=== PATIENT | male | born 1980 | race Caucasian/White ===

== ENCOUNTER 2020-10-04 10:07 | Outpatient (REF) | payer OTHER, SELFPAY ==
[2020-10-04 10:51] LABS: MANUAL DIFF FLAG NO
[2020-10-04 10:53] LABS: Basophils Percent Auto 0.5 % (0-2); Eosinophils Absolute Auto 0.1 X10*3/uL (0.0-0.4); Eosinophils Percent Auto 1.2 % (0-4); Hematocrit 42.8 % (42-52); Hemoglobin 14.3 g/dl (14.0-18.0); Imm Gran Abs Auto 0.01 X10*3/uL (0.00-0.03); Imm Gran Pct Auto 0.1 % (0.0-0.4); Lymphocytes Absolute Auto 2.5 X10*3/uL (1.2-4.9); Mean Corpuscular HGB Conc 33.4 g/dl (31.0-36.0); Mean Corpuscular Hemoglobin 28.2 pg (27.0-33.0); Mean Corpuscular Volume 84.4 fL (80-98); Mean Platelet Volume 9.9 fL (9.4-12.4); Monocytes Absolute Auto 0.6 X10*3/uL (0.1-1.2); Monocytes Percent Auto 8.5 % (2-11); Neutrophils Absolute Auto 4.3 X10*3/uL (2.0-8.3); Neutrophils Percent Auto 56.7 % (45-73); Platelet Count 316 X10*3/uL (160-400); Red Blood Count 5.07 X10*6/uL (4.60-5.80); Red Cell Distribution Width 14.6 % (11.0-16.0); White Blood Count 7.5 X10*3/uL (4.8-10.8)
[2020-10-04 11:15] LABS: Alanine Aminotransferase 23 U/L (0-40); Albumin Level 4.5 g/dL (3.5-5.0); Alkaline Phosphatase 85 U/L (39-117); Anion Gap 12 (12-20); Aspartate Amino Transferase 22 U/L (5-37); Bilirubin Total 1.7 mg/dL (0.0-1.0); Blood Urea Nitrogen 11 mg/dL (9-16); Calcium 8.4 mg/dL (8.4-10.2); Carbon Dioxide 26 mmol/L (22-29); Chloride 104 mmol/L (96-108); Cholesterol 176 mg/dL; Estimated Glomerular Filt Rate > 60; Glucose Fasting 107 mg/dL (60-99); HDL Cholesterol 42 mg/dL; LDL Cholesterol Calculated 93 mg/dl; Potassium 3.5 mmol/l (3.3-5.1); Sodium 138 mmol/L (135-145); Total Protein 7.1 g/dL (6.5-8.0); Triglycerides 208 mg/dL
[2020-10-04 11:37] LABS: TSH reflex Free T4 2.52 mIU/mL (0.32-4.0)
[2020-10-04 12:02] LABS: Glucose Urine UA NEG (NEG); Leukocyte Esterase Urine NEG (NEG); Nitrite Urine NEG (NEG); PH 5.5 (5.0-8.0); Specific Gravity - Urine >= 1.030 (1.005-1.025); Urine Blood NEG (NEG); Urine Ketones NEG (NEG); Urine Protein NEG (NEG-TRACE)
[2020-10-04 12:06] LABS: Appearance Urine CLEAR; Color Urine YELLOW; UACC Culture Trigger NO
== END 2020-10-04 10:08 | disposition home or self-care (01) ==
LOC: HO.LAB 10:07
PROVIDERS: PCP Internal Medicine; Visit Provider Internal Medicine
DX: Z00.00 Encounter for general adult medical examination without abnormal findings (principal); E78.00 Pure hypercholesterolemia, unspecified; E55.9 Vitamin D deficiency, unspecified
CPT/HCPCS: 36415; 80053; 80061; 81003; 82306; 84443; 85025

== ENCOUNTER → 2021-07-17 12:55 | Outpatient (BNVA) | payer SELFPAY | PROVIDERS: PCP Internal Medicine; Visit Provider Physician Assistant | DX: Z02.79 Encounter for issue of other medical certificate (principal) ==

== ENCOUNTER 2021-10-04 10:00 | Outpatient (REF) | payer OTHER, SELFPAY ==
--- NOTE | ~2021-10-04 | XR_ITS ---
EXAMINATION: XR KNEE, LEFT XR ANKLE, LEFT CLINICAL INFORMATION: Pain COMPARISON: 09/30/2019 TECHNIQUE: 4 views of the left knee, including AP upright view. 3 views of the left ankle. FINDINGS: Left knee: No fracture or subluxation. The compartmental joint spaces are maintained. There are prominent tricompartmental marginal osteophytes. No joint effusion. Possible intra-articular body along the posterior joint line which measures 1 cm, although this could represent a fabella. Left ankle: No fracture or dislocation. The ankle mortise is congruent. Mild degenerative change with spurring. No ankle joint effusion. There is moderate hypertrophic spurring of the plantar aponeurosis and Achilles insertion to the calcaneus. XR/XR knee LT 3V IMPRESSION: Moderate tricompartmental degenerative changes of the left knee. Mild degenerative changes at the left ankle. Prominent heel spurs.
--- NOTE | ~2021-10-04 | XR_ITS ---
EXAMINATION: XR KNEE, LEFT XR ANKLE, LEFT CLINICAL INFORMATION: Pain COMPARISON: 09/30/2019 TECHNIQUE: 4 views of the left knee, including AP upright view. 3 views of the left ankle. FINDINGS: Left knee: No fracture or subluxation. The compartmental joint spaces are maintained. There are prominent tricompartmental marginal osteophytes. No joint effusion. Possible intra-articular body along the posterior joint line which measures 1 cm, although this could represent a fabella. Left ankle: No fracture or dislocation. The ankle mortise is congruent. Mild degenerative change with spurring. No ankle joint effusion. There is moderate hypertrophic spurring of the plantar aponeurosis and Achilles insertion to the calcaneus. XR/XR ankle LT min 3V IMPRESSION: Moderate tricompartmental degenerative changes of the left knee. Mild degenerative changes at the left ankle. Prominent heel spurs.
[2021-10-04 10:11] LABS: MANUAL DIFF FLAG NO
[2021-10-04 10:32] LABS: Basophils Absolute Auto 0.1 X10*3/uL (0.0-0.2); Basophils Percent Auto 0.6 % (0-2); Eosinophils Absolute Auto 0.1 X10*3/uL (0.0-0.4); Eosinophils Percent Auto 1.5 % (0-4); Hematocrit 43.2 % (42.0-52.0); Hemoglobin 14.6 g/dl (14.0-18.0); Imm Gran Abs Auto 0.03 X10*3/uL (0.00-0.03); Imm Gran Pct Auto 0.4 % (0.0-0.4); Lymphocytes Absolute Auto 3.1 X10*3/uL (1.2-4.9); Lymphocytes Percent Auto 37.3 % (20-40); Mean Corpuscular HGB Conc 33.8 g/dl (31.0-36.0); Mean Corpuscular Hemoglobin 28.4 pg (27.0-33.0); Mean Platelet Volume 10.4 fL (9.4-12.4); Monocytes Absolute Auto 0.7 X10*3/uL (0.1-1.2); Monocytes Percent Auto 8.7 % (2-11); Neutrophils Absolute Auto 4.24 x10*3/uL (2.0-8.3); Neutrophils Percent Auto 51.5 % (45-73); Platelet Count 301 X10*3/uL (160-400); Red Blood Count 5.14 X10*6/uL (4.60-5.80); Red Cell Distribution Width 14.8 % (11.0-16.0); White Blood Count 8.2 X10*3/uL (4.8-10.8)
[2021-10-04 11:11] LABS: Erythrocyte Sedimentation Rate 4 MM/HR (0-15)
[2021-10-04 11:16] LABS: TSH reflex Free T4 2.13 uIU/mL (0.32-4.0); Vitamin D 25-OH Total 37.5 ng/mL (>30)
[2021-10-04 11:18] LABS: Alanine Aminotransferase 40 U/L (0-40); Albumin Level 4.6 g/dL (3.5-5.0); Alkaline Phosphatase 104 U/L (39-117); Anion Gap 12 (12-20); Aspartate Amino Transferase 32 U/L (5-37); Bilirubin Total 2.2 mg/dL (0.0-1.0); Blood Urea Nitrogen 11 mg/dL (9-16); Calcium 9.1 mg/dL (8.4-10.2); Carbon Dioxide 27 mmol/L (22-29); Chloride 104 mmol/L (96-108); Cholesterol 243 mg/dL; Estimated Glomerular Filt Rate > 60; Glucose Fasting 104 mg/dL (60-99); HDL Cholesterol 39 mg/dL; LDL Cholesterol Calculated 137 mg/dl; Potassium 3.7 mmol/L (3.3-5.1); Sodium 139 mmol/L (135-145); Total Protein 7.3 g/dL (6.5-8.0); Triglycerides 336 mg/dL
[2021-10-04 11:31] LABS: Uric Acid 6.8 mg/dL (3.4-7.0)
[2021-10-04 11:33] LABS: Appearance Urine CLEAR; Color Urine YELLOW; Glucose Urine UA NEG (NEG); Leukocyte Esterase Urine NEG (NEG); Nitrite Urine NEG (NEG); Urine Blood NEG (NEG); Urine Ketones NEG (NEG); Urine Protein NEG (NEG-TRACE)
== END 2021-10-04 10:01 | disposition home or self-care (01) ==
LOC: HO.XRAY 10:00
PROVIDERS: PCP Internal Medicine; Visit Provider Internal Medicine
DX: M25.572 Pain in left ankle and joints of left foot (principal); M25.562 Pain in left knee; M25.462 Effusion, left knee; I10 Essential (primary) hypertension; E78.00 Pure hypercholesterolemia, unspecified; M79.7 Fibromyalgia; M10.9 Gout, unspecified; E55.9 Vitamin D deficiency, unspecified
CPT/HCPCS: 36415; 73562; 73610; 80053; 80061; 81003; 82306; 84443; 84550; 85025; 85652

== ENCOUNTER → 2021-10-24 09:48 | Outpatient (BNVA) | payer OTHER, SELFPAY | PROVIDERS: PCP Internal Medicine; Visit Provider Physician Assistant ==

== ENCOUNTER 2022-01-25 09:00 | Outpatient (RCR) | payer OTHER, SELFPAY ==
--- NOTE | 2021-12-04 09:20 | MHC.PT.EP ---
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 UPON EXAM HE DEMONSTRATES DECREASED ROM AND STRENGTH OF KNEE JOINT WELL WEAKNESS AROUND HIS HIP MUSCULATURE. HE REPORTS INCREASED PAIN AND EDEMA. FUNCTIONAL LIMITATIONS INCLUDE DECREASED ABILITY TO PERFORM STAIRS, WALKING AND SQUATTING AND STATIC STANIDNG. HE REPORTS DECREASED ABILITY TO PERFORM WORK TASKS AND RECREATIONAL ACTIVITIES AND HIS SLEEP IS DISRUPTED. A PT IS A GOOD CANDIDATE FOR SKILLED PT DUE TO AGE, POTENTIAL REMEDIATION OF IMPAIRMENTS, TYPICAL DISEASE/CONDITION PROGRESSION AND PROGNOSIS, COMORBIDITIES, AND MOTIVATION. PT WOULD BENEFIT FROM TAILORED PROGRAM OF THERAPEUTIC ACTIVITIES, FUNCTIONAL TRAINING, GAIT TRAINING, POSTURAL EDUCATION, NEUROMUSCULAR RE-EDUCATION, AND MODALITIES NEEDED. Frequency and Duration: The patient will be seen 2 X WEEK FOR 4 WEEKS Short Term Goals: INITIATE HEP AND PROMOTE SELF MANAGEMENT OF SYMPTOMS Halfway Goals: IN 4 WEEKS: TO DEMONSTRATE FULL KNEE ROM, EQUAL MOMO TO DEMONSTRATE FULL LE STRENGTH, EQUAL MOMO TO ASCEND AND DESCEND STAIRS WITHOUT PAIN GREATER THAN 2/10 TO AMBULATE AD VIVIANA ON LEVEL AND UNEVEN SURFACES FOR FITNESS WITHOUT PAIN GREATER THAN 2/10 TO PERFORM FULL FUNCTIONAL SQUAT WITHOUT SUBSTITUTION Treatment Plan: Modalities to reduce pain, spasms and effusion. Manual therapy to restore motion and function. Therapeutic exercise to improve strength and flexibility. Neuromuscular re-education for posture and balance. Therapeutic activities to return to functional activities of daily living. Electronically signed by: BREE DIAZ PT, DPT Please sign and return to therapist. Thank you for your referral.
--- NOTE | 2022-02-12 16:27 | MHC.PT.DC ---
[facility] [place] Office [place] Office [place] [address] Sheri Sheth 140 [facility] [phone] F: [phone] F: [phone] F: [phone] F: [phone] Physical Therapy Discharge Report Diagnosis: LEFT KNEE OA Date of Surgery: Date of Evaluation: 12/04/21 Date of Discharge: 01/28/22 Treatments to Date: 8 Cancellations to Date: 0 No Shows to Date: 0 Discharge Status: Achieved Goals Improved Function Independent with HEP Discharge Summary: Ramon progressed well in therapy with all goals met. ROM and strength are WNLs and pain is reported as a zero. He is independent with HEP and we will DC at this time. Electronically signed by: Prabha Dietrich PT, DPT Please sign and return to therapist. Thank you for your referral.
== END 2022-02-12 16:28 | disposition home or self-care (01) ==
LOC: HO.PT 09:00
PROVIDERS: PCP Internal Medicine; Visit Provider Physician Assistant
DX: M17.12 Unilateral primary osteoarthritis, left knee (principal)
CPT/HCPCS: 97110; 97161; 97530; 97535

== ENCOUNTER 2022-11-06 11:24 | Outpatient (REF) | payer OTHER, SELFPAY ==
[2022-11-06 15:01] LABS: Influenza A PCR POSITIVE (Negative); Influenza B PCR NEGATIVE (Negative); Resp Syncy Virus RNA Qual PCR NEGATIVE (Negative); SARS COV2 PCR INHOUSE NEGATIVE (Negative)
== END 2022-11-06 11:25 | disposition home or self-care (01) ==
LOC: HO.LAB 11:24
PROVIDERS: Visit Provider Nurse Practitioner Family
DX: Z20.822 Contact with and (suspected) exposure to COVID-19 (principal); B34.9 Viral infection, unspecified
CPT/HCPCS: 0241U

== ENCOUNTER 2022-12-24 08:52 | Outpatient (REF) | payer OTHER, SELFPAY ==
[2022-12-24 09:05] LABS: MANUAL DIFF FLAG NO
[2022-12-24 09:50] LABS: Basophils Absolute Auto 0.1 X10*3/uL (0.0-0.2); Basophils Percent Auto 0.6 % (0-2); Eosinophils Absolute Auto 0.1 X10*3/uL (0.0-0.4); Eosinophils Percent Auto 1.4 % (0-4); Hematocrit 41.9 % (42.0-52.0); Hemoglobin 14.2 g/dl (14.0-18.0); Imm Gran Abs Auto 0.03 X10*3/uL (0.00-0.03); Imm Gran Pct Auto 0.3 % (0.0-0.4); Lymphocytes Absolute Auto 3.7 X10*3/uL (1.2-4.9); Lymphocytes Percent Auto 41.8 % (20-40); Mean Corpuscular HGB Conc 33.9 g/dl (31.0-36.0); Mean Corpuscular Hemoglobin 28.3 pg (27.0-33.0); Mean Corpuscular Volume 83.5 fL (80.0-98.0); Mean Platelet Volume 10.5 fL (9.4-12.4); Monocytes Absolute Auto 0.7 X10*3/uL (0.1-1.2); Monocytes Percent Auto 7.8 % (2-11); Neutrophils Absolute Auto 4.3 x10*3/uL (2.0-8.3); Neutrophils Percent Auto 48.1 % (45-73); Platelet Count 351 X10*3/uL (160-400); Red Blood Count 5.02 X10*6/uL (4.60-5.80); White Blood Count 8.9 X10*3/uL (4.8-10.8)
[2022-12-24 09:53] LABS: Appearance Urine Clear; Color Urine Yellow; Glucose Urine UA Negative (Negative); Leukocyte Esterase Urine Negative (Negative); Nitrite Urine Negative (Negative); Urine Blood Negative (Negative); Urine Ketones Negative (Negative); Urine Protein Negative (Neg-Trace)
[2022-12-24 10:37] LABS: Alanine Aminotransferase 33 U/L (0-40); Albumin Level 4.2 g/dL (3.5-5.0); Alkaline Phosphatase 97 U/L (39-117); Anion Gap 13 (12-20); Aspartate Amino Transferase 23 U/L (5-37); Bilirubin Total 1.4 mg/dL (0.0-1.0); Blood Urea Nitrogen 10 mg/dL (9-16); Calcium 8.6 mg/dL (8.4-10.2); Carbon Dioxide 26 mmol/L (22-29); Chloride 105 mmol/L (96-108); Cholesterol 174 mg/dL; Estimated Glomerular Filt Rate > 60; Glucose Fasting 102 mg/dL (60-99); HDL Cholesterol 40 mg/dL; LDL Cholesterol Calculated 62 mg/dl; Potassium 3.3 mmol/L (3.3-5.1); Sodium 141 mmol/L (135-145); Total Protein 6.8 g/dL (6.5-8.0); Triglycerides 364 mg/dL
[2022-12-24 11:00] LABS: TSH reflex Free T4 3.63 uIU/mL (0.32-4.0); Vitamin D 25-OH Total 36.3 ng/mL (>30)
== END 2022-12-24 08:53 | disposition home or self-care (01) ==
LOC: HO.LAB 08:52
PROVIDERS: PCP Internal Medicine; Visit Provider Internal Medicine
DX: Z00.00 Encounter for general adult medical examination without abnormal findings (principal); E78.00 Pure hypercholesterolemia, unspecified; E55.9 Vitamin D deficiency, unspecified; R30.0 Dysuria
CPT/HCPCS: 36415; 80053; 80061; 81003; 82306; 84443; 85025

== ENCOUNTER → 2023-07-10 09:56 | Outpatient (BNVA) | payer SELFPAY | PROVIDERS: PCP Internal Medicine; Visit Provider Physician Assistant Medical | DX: Z02.79 Encounter for issue of other medical certificate (principal) ==

== ENCOUNTER 2023-07-16 08:16 | Outpatient (AMB) | payer OTHER, SELFPAY ==
[2023-07-16 08:22] VITALS: BP 148/98; PULSE 79; O2SAT 98; BMI 25.7
--- NOTE | 2023-07-16 08:22 | A.OFFPC_ITS ---
Vital Signs 07/16/23 08:22 Height 5 ft 8 in Weight 169 lb BMI 25.7 BP 148/98 H Blood Pressure Location Lt brachial Position Sitting Pulse 79 Pulse Source Pulse Oximeter Pulse Oximetry (%) 98 Oxygen Delivery Method Room Air Intake Visit Reasons: L ankle swelling Allergies No Known Allergies Allergy (Unknown, Verified 07/16/23 08:35) UNKNOWN Medication List - Last Reconciled 07/16/23 by MARY Watts atorvastatin 10 mg PO DAILY cetirizine (Zyrtec) 10 mg PO DAILY 30 days cholecalciferol (vitamin D3) (Vitamin D3) 25 mcg PO DAILY sildenafil 50 mg PO DAILY PRN Tobacco use date assessed: 12/20/22 HPI L ankle swelling HPI Details Patient is a 43-year-old male presents today for an office visit due to left ankle intermittent pain and swelling for long time now. Patient of Dr. Miller. Medical history significant for hypercholesterolemia, left ankle pain among others. 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 He reports swelling and intermittent pain in the end of his shift, reports swelling on the lateral ankle aspect, reports pain as throbbing/pressure/pinches. Patient reports that his symptoms go away by the morning when his resting. He reports ibuprofen helps with pain. He reports intermittent pain with ambulation. No shortness of breath or chest pain. Denies left ankle symptoms in the office today. 10/2021 XR/XR ankle LT min 3V IMPRESSION: Moderate tricompartmental degenerative changes of the left knee. ? Mild degenerative changes at the left ankle. Prominent heel spurs. [facility] Medical History Erectile dysfunction Perforated Meckel's diverticulum Pure hypercholesterolemia Vitamin D deficiency Surgical History Hx of left knee surgery (~1997) Status post appendectomy (~07/31/07) Family History Father Hypertension Mother Diverticulitis Brother Diverticulitis Social History Housing: House Alcohol intake: current Alcohol intake frequency: holidays/special occasions only Patient Tobacco Use Status: Never used Tobacco e-Cigarette/Vaping Use: Never Used Second Hand Smoke Exposure: Yes service: No Current occupational status: employed 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 1. Little interest or pleasure in doing things: not at all 2. Feeling down, depressed, or hopeless: not at all 3. Trouble falling or staying asleep, or sleeping too much: not at all 4. Feeling tired or having little energy: not at all 5. Poor appetite or overeating: not at all 6. Feeling bad about yourself - or that you are a failure or have let yourself or your family down: not at all 7. Trouble concentrating on things, such as reading the newspaper or watching television: not at all 8. Moving or speaking so slowly that other people could have noticed. Or the opposite - being so fidgety or restless that you have been moving around a lot more than usual: not at all 9. Thoughts that you would be better off or of hurting yourself in some way: not at all Total score: 0 Depression Screening Interpretation: Negative 19767 - PHQ-9 Billing: Yes Source: Developed by Drs. Kimani Solorzano, Molly Mckinney, Albaro Jensen and colleagues, with an educational wilbur from [employer]. Thrive Questionnaire Date Thrive assessed: 12/20/22 I am a: Patient What is your living situation today?: I have a steady place to live Within the past 12 months, did the food you bought not last and you didn't have the money to get more?: Never true Within the past 12 months, did you worry whether your food would run out before you got money to buy more?: Never true Currently or been in a relationship where the following occur: no concerns reported AUDIT C Alcohol Use Questionnaire (AUDIT-C) 1. How often do you have a drink containing alcohol?: Monthly or less 2. How many drinks containing alcohol do you have on a typical day when you are drinking?: 1 or 2 3. How often do you have six or more drinks on one occasion?: Never Total Score: 1 Score Reviewed/Action Taken: No MALGORZATA-7 AMB Questionnaire MALGORZATA-7 Date MALGORZATA - 7 assessed: 12/20/22 Feeling nervous, anxious, or on edge: 0 = Not at all Not being able to stop or control worryin = Not at all Worrying too much about different things: 0 = Not at all Trouble relaxin = Not at all Being so restless that it is hard to sit still: 0 = Not at all Becoming easily annoyed or irritable: 0 = Not at all Feeling afraid as if something awful might happen: 0 = Not at all Total MALGORZATA-7 score (0-4 normal; 5-9 mild; 10-14 moderate; 15-21 severe): 0 Source: Developed by Drs. Kimani Solorzano, Molly Mckinney, Albaro Jensen and colleagues, with an educational wilbur from [employer]. MALGORZATA-7 Assessment Billing MALGORZATA-7 Assessment Tool: MALGORZATA-7 Assessment 03749 Review of Systems Const Denies body aches, Denies chills, Denies fever(s) and Denies headache(s) Eyes Denies change in vision ENT Denies dizziness, Denies otalgia, Denies headache(s), Denies nasal discharge, Denies sinus pain and Denies sore throat Card Denies chest pain, Denies edema, Denies lightheadedness and Denies dyspnea Resp Denies cough, Denies dyspnea and Denies wheezing GI Denies abdominal pain Denies dysuria Musc Denies myalgias and Reports arthralgias Skin/Breast Denies rash Neuro Denies dizziness and Denies headache(s) Aller/Immun Denies wheezing Physical exam (Primary Care) Vital Signs: Last Vital Signs Pulse 79 07/16/23 08:22 BP 148/98 H 07/16/23 08:22 Pulse Ox 98 07/16/23 08:22 Oxygen Delivery Method Room Air 07/16/23 08:22 BMI result Body Mass Index 25.7 Tobacco/Smoking Status: Tobacco use Status Tobacco use date assessed 12/20/22 07/16/23 08:26 Patient Tobacco Use Status Never used Tobacco 07/16/23 08:26 e-Cigarette/Vaping Use Never Used 07/16/23 08:26 PHQ-9: PHQ-9 Score PHQ-9: Total score 0 07/16/23 08:26 Depression Screening Interpretation: Negative Thrive Assessment: Date of Thrive Assessment Date Thrive assessed 12/20/22 07/16/23 08:26 Currently or been in a relationship where the following occur: no concerns reported Const General: cooperative and no acute distress Orientation/consciousness: patient oriented x3 HENMT Head: Yes normocephalic and Yes atraumatic Mouth: oropharynx normal and moist mucous membranes Throat: Yes posterior oropharynx normal Eyes General: appearance normal, both eyes and all related structures Neck Neck: Yes normal visual inspection and Yes full ROM Resp Effort & Inspection: normal respiratory effort and able to speak in complete sentences Auscultation: clear to auscultation bilaterally, no crackles, no rales, no rhonchi and no wheezes Cardio Rate: regular rate Rhythm: regular rhythm Heart sounds: S1 normal heart sound present and S2 normal heart sound present Peripheral pulses: dorsalis pedis present on the left GI Auscultation: normal bowel sounds Skin General skin exam: no rashes or lesions noted Neuro General: patient oriented x3 Gait exam (Neuro): Normal gait present Extrem General: Yes full ROM and No edema Left lower extremity: ankle Details: normal to inspection and normal ROM; no tenderness, no swelling, no pitting edema, no warmth, no ecchymosis and no crepitus Assessment and Plan Assessment & Plan (1) Left ankle pain: Code(s): M25.572 - Pain in left ankle and joints of left foot Qualifiers: Chronicity: acute Qualified Code(s): M25.572 - Pain in left ankle and joints of left foot Plan: Patient presents with ongoing left ankle intermittent pain and swelling for long time. Physical exam normal today for left ankle. Suspect musculoskeletal in origin. Will refer to physical therapy. Patient can continue [id number] ibuprofen 400 mg every 8 hours as needed for pain. Follow-up if no improvement after physical therapy. Patient agreed with the plan. Orders: Orders PT Evaluation and Treatment Today M25.572 - Pain in left ankle and joints of left foot Coding Level of Care Code Est Pt Level 3 (09684) Diagnoses Left ankle pain M25.572 Chronicity: acute Additional Codes MALGORZATA-7 Assessment Billing - MALGORZATA-7 Assessment Tool: MALGORZATA-7 Assessment 44589 ([id number])
== END 2023-07-16 08:47 | disposition home or self-care (01) ==
PROVIDERS: PCP Internal Medicine; Visit Provider Nurse Practitioner Family
DX: M25.572 Pain in left ankle and joints of left foot (principal)
CPT/HCPCS: 99213

== ENCOUNTER 2023-08-30 08:00 | Outpatient (RCR) | payer OTHER, SELFPAY ==
--- NOTE | 2023-08-20 12:51 | MHC.PT.EP ---
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 PRESENTS WITH LIMITED L ANKLE ROM, ANTALGIC GT, PAIN WITH LIMITED ADLS. Pt REPORTS SWELLING NOTED AT TIMES AFTER WORK. SHOULD BENEFIT FROM PT TO ADDRESS THESE ISSUES Frequency and Duration: The patient will be seen 2X/WK X 6 WKS Short Term Goals: 1. INCREASED AWARENESS ANKLE CARE 2. IMPROVED GT PATTERN (LESS LIMP) Global Project Manager Goals: 1. I HEP WITH DC EX PLAN 2. DECREASED L ANKLE PAIN AT LEAST 50% WITH ADLS 3. INCREASED L ANKLE ROM 5 DEGREES T/O Treatment Plan: Modalities to reduce pain, spasms and effusion. Manual therapy to restore motion and function. Therapeutic exercise to improve strength and flexibility. Neuromuscular re-education for posture and balance. Therapeutic activities to return to functional activities of daily living. Electronically signed by: PIERRE FRANKS PT Please sign and return to therapist. Thank you for your referral.
--- NOTE | 2023-08-30 10:41 | MHC.PT.DC ---
[facility] [place] Office [place] Office [place] Office [address] Sheri Sheth [address] [phone] F: [phone] F: [phone] F: [phone] F: [phone] Physical Therapy Discharge Report Diagnosis: L ANKLE PAIN Date of Surgery: NA Date of Evaluation: 08/20/23 Date of Discharge: 08/30/23 Treatments to Date: 4 Cancellations to Date: No Shows to Date: Discharge Status: Independent with HEP Patient Elected to Stop Discharge Summary: HAS MET MOST PT GOALS EXCEPT CONTINUES WITH LIMITED DF/PF (HAS STRETCHED TO CONTINUE TO WORK ON THIS) Electronically signed by: PIERRE FRANKS PT Please sign and return to therapist. Thank you for your referral.
== END 2023-08-30 10:44 | disposition home or self-care (01) ==
LOC: HO.PT 08:00
PROVIDERS: PCP Internal Medicine; Visit Provider Nurse Practitioner Family
DX: M25.572 Pain in left ankle and joints of left foot (principal)
CPT/HCPCS: 97110; 97140; 97161; 97530

== ENCOUNTER 2024-03-02 13:38 | Inpatient (IN) | payer OTHER, SELFPAY ==
--- NOTE | ~2024-03-02 | MR_ITS ---
MR BRAIN WITHOUT CONTRAST CLINICAL INFORMATION: Left facial weakness and left arm numbness. COMPARISON: CTA head and neck 03/02/2024. TECHNIQUE: MRI of the brain was obtained using routine sequences without contrast. FINDINGS: There is no hydrocephalus, extra-axial surface collection, or herniation. Mild nonspecific T2 signal changes within the supratentorial white matter. The major flow voids at the skull base are preserved. There is no acute infarct on diffusion-weighted imaging. There is no intracranial hemorrhage on the gradient recalled echo acquisition. The midline structures are normal. The cerebellar tonsils are normally positioned. The cerebellum and brainstem are normal. The craniocervical junction is normal. Osseous marrow signal intensity is homogenous. There is a partially imaged 1.3 cm ovoid nodule partially inseparable from the deep lobe of the left parotid gland extending into the left parapharyngeal space that could reflect a primary parotid lesion or a lymph node. MR/MR head/brain wo con IMPRESSION: - No acute infarcts. Mild nonspecific T2 signal changes within the supratentorial white matter. - There is a partially imaged 1.3 cm ovoid nodule partially inseparable from the deep lobe of the left parotid gland extending into the left parapharyngeal space that could reflect a primary parotid lesion or a lymph node.
--- NOTE | ~2024-03-02 | XR_ITS ---
EXAMINATION: XR CHEST CLINICAL INFORMATION: Hypertension COMPARISON: Chest radiograph 03/31/2007 TECHNIQUE: 2 views of the chest were obtained. FINDINGS: No significant abnormality is noted involving the heart, lungs, mediastinum, bony thorax or soft tissues. XR/XR chest 2V IMPRESSION: Unremarkable examination.
--- NOTE | ~2024-03-02 | CT_ITS ---
EXAMINATION: CT ANGIOGRAM HEAD CT ANGIOGRAM NECK CLINICAL INFORMATION: Reason for Exam stroke, LEFT FACIAL WEAKNESS COMPARISON: None. TECHNIQUE: Initial noncontrast day care aide imaging of the head and neck was performed. Noncontrast head CT was also performed. Test bolus sequences followed by intravenous administration 70 mL of 350. Helical imaging was performed in the axial plane from the aortic arch to the skull vertex. Delayed postcontrast imaging of the head was also performed. The data was processed at the angiography technologist workstation for generation of MIP sequences. Angled MIPs and volume rendered reformatted images were also generated at an offline 3D workstation. Stenoses are assessed in accordance with NASCET criteria unless otherwise indicated. DLP: 2026.7 mGy-cm This CT examination was performed using dose optimization techniques as appropriate, variously including the following: *Automated exposure control. *Adjustment of mA and/or kV according to patient size (this includes techniques or standardized protocols for targeted exams where dose is matched to indication/reason for exam; i.e. extremities or head). *Use of iterative reconstruction technique. FINDINGS: CT Head: There is no evidence of acute intracranial hemorrhage or edematous territorial infarction. Mild mineralization in the left cerebellar hemisphere. There is no abnormal attenuation within the brain parenchyma. Wright-white matter differentiation is preserved. The ventricles are normal in size and configuration. No evidence for obstructive hydrocephalus. No abnormal mass effect or midline shift. No extra-axial fluid collections. No pathologic intra-axial enhancement or regional oligemia. No acute soft tissue or osseous abnormalities. The mastoid air cells and paranasal sinuses are clear. CT Neck: The thyroid gland and remaining cervical soft tissues are within normal limits. Multilevel cervical spondylosis. CT Upper Chest: The visualized lung apices and upper mediastinum are within normal limits. CTA of the head and neck is somewhat technically limited secondary to motion artifact. Extensive venous contamination also somewhat limits assessment of the distal intracranial arterial vasculature. Neck CTA: Aortic Arch: Normal contour and caliber. Two vessel branching pattern of the arch with left common carotid artery arising from the brachiocephalic trunk. Great Vessel Origins: No significant stenosis of the branch origins. Right Common Carotid Artery: No focal stenosis or occlusion. Cervical Right Internal Carotid Artery: Normal opacification without focal stenosis or occlusion. Left Common Carotid Artery: No focal stenosis or occlusion. Cervical Left Internal Carotid Artery: Normal opacification without focal stenosis or occlusion. Cervical Right Vertebral Artery: No focal stenosis or occlusion. Cervical Left Vertebral Artery: No focal stenosis or occlusion. Brain CTA: Intracranial Internal Carotid Arteries: No focal stenosis or occlusion. Right Anterior Cerebral Artery: Normal A1 segment. Normal opacification of the distal [place]IS[place] segments. Left Anterior Cerebral Artery: Normal A1 segment. Normal opacification of the distal GIS[place]LL segments. Anterior Communicating Artery: Normal. Right Middle Cerebral Artery: Normal M1 segment of the MCA without focal stenosis or occlusion. Normal arborization of the distal segments. Left Middle Cerebral Artery: Normal M1 segment of the MCA without focal stenosis or occlusion. Normal arborization of the distal segments. Right Vertebral Artery: Normal V4 segment. Left Vertebral Artery: Normal V4 segment. Basilar Artery: Normal without focal stenosis or occlusion. Normal appearance of the proximal superior cerebellar arteries. Right Posterior Cerebral Artery: Normal P1 segment. Normal opacification of the distal ELECTRIC FORK OPERATOR segments. Left Posterior Cerebral Artery: Normal P1 segment. Normal opacification of the distal ELECTRIC FORK OPERATOR segments. Normal opacification of the superior sagittal, straight, transverse, and sigmoid sinuses. CT/CT angio head neck IMPRESSION: 1. No acute intracranial abnormality including hemorrhage, mass effect, hydrocephalus, or acute territorial edematous infarction. 2. Within the technical limitations of motion artifact and intracranial venous contamination, no evidence of arterial high grade stenosis or large vessel occlusion in the head or neck.
[2024-03-02 13:48] VITALS: BP 212/133; PULSE 101; RESP 20; TEMP 37.4; O2SAT 100; BMI 25.8
--- NOTE | 2024-03-02 13:48 | ED_ITS ---
HPI - General Adult General Chief complaint: General Medical Stated complaint: High blood pressure Time Seen by Provider: 03/02/24 20:34 Related Data Previous Rx's Medication Instructions Recorded cetirizine 10 mg tablet (Zyrtec) 10 mg PO DAILY 30 days #30 tabs 11/06/22 sildenafil 50 mg tablet 50 mg PO DAILY PRN sexual activity 02/20/23 #6 tabs atorvastatin 10 mg tablet 10 mg PO DAILY #90 tabs 04/11/23 cholecalciferol (vitamin D3) 25 25 mcg PO DAILY #90 caps 01/17/24 mcg (1,000 unit) capsule (Vitamin D3) Allergies Allergy/AdvReac Type Severity Reaction Status Date / Time No Known Allergies Allergy Unknown UNKNOWN Verified 07/16/23 08:35 [facility] Past Medical History Medical History Erectile dysfunction Perforated Meckel's diverticulum Vitamin D deficiency Pure hypercholesterolemia Surgical History Hx of left knee surgery (~1997) Status post appendectomy (~07/31/07) Family History Family History Father Hypertension Mother Diverticulitis Brother Diverticulitis Social History Social History Housing: House Alcohol intake: current Alcohol intake frequency: holidays/special occasions only Alcohol type: beer and hard liquor Patient Tobacco Use Status: Never used Tobacco e-Cigarette/Vaping Use: Never Used Second Hand Smoke Exposure: Yes service: No Current occupational status: employed 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[employer] Cognitive needs: No Hearing needs: No Vision needs: No Physical Exam ED Vital Signs: Vital Signs - 24 hr 03/02/24 13:48 03/02/24 19:31 03/02/24 21:06 Temperature 99.3 F 98.2 F 97.6 F Pulse Rate 101 H 92 87 Respiratory Rate 20 18 16 Blood Pressure 212/133 H 214/121 H 207/109 H Pulse Oximetry 100 97 99 Oxygen Delivery Method Room Air Room Air Room Air 03/02/24 22:12 03/02/24 22:59 Temperature 97.6 F Pulse Rate 74 75 Respiratory Rate 20 18 Blood Pressure 176/107 H 175/104 H Pulse Oximetry 98 97 Oxygen Delivery Method Room Air Room Air BMI result Body Mass Index 25.8 Course Course Course Narrative: This is a rapid medical exam: Additional HPI, ROS, PE not included below will be deferred to primary provider. Patient is a 43-year-old male presenting to the emergency department stating that his blood pressure was high when he checked it at [facility] yesterday, 180 systolic. BP 230/130 L arm, 212/133 R arm in triage. Denies recent headaches, chest pain, dizziness. Does report headaches at times. States he drinks a lot of caffeine, and is under increased stress. This morning had decreased taste. Plan: EKG, labs, CXR Medications Administered Discontinued Medications Generic Name Dose Route Start Last Admin Trade Name Freq PRN Reason Stop Dose Admin Iohexol 100 ml 03/02/24 21:49 03/02/24 21:50 Iohexol 350 Mg/Ml 100 Ml Infus..Btl IV 03/02/24 21:50 70 ml ONCE ONE Administration Labetalol HCl 10 mg 03/02/24 21:09 03/02/24 21:32 Labetalol Hcl 100 Mg/20 Ml Vial IVPUSH 03/02/24 21:10 10 mg ONCE ONE Administration Medical Decision Making Medical Decision Making MDM Narrative: Patient is 43 years old presents today with having some facial weakness along with arm numbness subjective weakness. Question Nuno's versus CVA. Patient's sugar is normal. No evidence for hypoglycemia. CT scan of the head was grossly negative for any acute evidence of bleeding. CTA was negative for any large vessel occlusion. Patient's symptoms greater than 24 hours not a good candidate for tPA. Patient blood pressure extremely elevated at 210/130 initially. A dose of labetalol was given. Current blood pressure is down to 170/100. Will keep at current level. Case discussed with the hospitalist team. Will admit for further evaluation of possible CVA. Currently in stable condition. Differential Diagnosis Differential Diagnoses: The differential diagnosis associated with the presentation includes CVA Nuno's palsy hypoglycemia Admission/Observation Consideration of admission/observation: Escalation of care including admission/observation considered Consult Healthcare Provider Management of the patient was discussed with: Hospitalist (Discussed with hospitalist for admission) Lab Data MDM Lab Attestation statement: I reviewed the patient's lab results. 03/02/24 14:01 03/02/24 14:01 Labs: Lab Results 03/02/24 03/02/24 Range/Units 14:01 23:03 WBC 8.1 (4.8-10.8) X10*3/uL RBC 5.29 (4.60-5.80) X10*6/uL Hgb 14.9 (14.0-18.0) g/dl Hct 43.3 (42.0-52.0) % MCV 81.9 (80.0-98.0) fL MCH 28.2 (27.0-33.0) pg MCHC 34.4 (31.0-36.0) g/dl RDW 14.9 (11.0-16.0) % Plt Count 329 (160-400) X10*3/uL MPV 10.1 (9.4-12.4) fL Immature Gran % (Auto) 0.5 H (0.0-0.4) % Neut % (Auto) 53.9 (45-73) % Lymph % (Auto) 36.5 (20-40) % [place] % (Auto) 7.3 (2-11) % Eos % (Auto) 1.1 (0-4) % Baso % (Auto) 0.7 (0-2) % Lymph # (Auto) 3.0 (1.2-4.9) X10*3/uL [place] # (Auto) 0.6 (0.1-1.2) X10*3/uL Eos # (Auto) 0.1 (0.0-0.4) X10*3/uL Baso # (Auto) 0.1 (0.0-0.2) X10*3/uL Abs Immat Gran (auto) 0.04 H (0.00-0.03) X10*3/uL Absolute Neuts (auto) 4.4 (2.0-8.3) x10*3/uL Absolute Nucleated RBC 0.000 (0.0-0.012) X10*3/uL Nucleated RBC % (auto) 0.0 (0.0-0.2) /100WBC Sodium 142 (135-145) mmol/L Potassium 3.1 L (3.3-5.1) mmol/L Chloride 107 (96-108) mmol/L Carbon Dioxide 25 (22-29) mmol/L Anion Gap 13 (12-20) BUN 6 L (9-16) mg/dL Creatinine 0.84 (0.5-1.4) mg/dL Estim Creat Clear Calc 106.0 Estimated GFR > 60 Random Glucose 122 H (60-115) mg/dL Calcium 8.9 (8.4-10.2) mg/dL Total Bilirubin 1.1 H (0.0-1.0) mg/dL AST 30 (5-37) U/L ALT 41 H (0-40) U/L Alkaline Phosphatase 93 (39-117) U/L Troponin I High Sens < 2.7 (<3.5-35.0) ng/L Total Protein 7.4 (6.5-8.0) g/dL Albumin 4.3 (3.5-5.0) g/dL Urine Color Yellow Urine Appearance Clear Urine pH 7.0 (5.0-9.0) Ur Specific [place] 1.020 (1.005-1.025) Urine Protein Negative (Neg-Trace) mg/dL Urine Glucose (UA) Negative (Negative) mg/dL Urine Ketones Negative (Negative) mg/dL Urine Blood Negative (Negative) Urine Nitrite Negative (Negative) Ur Leukocyte Esterase Negative (Negative) Influenza Type A (PCR) NEGATIVE (Negative) Influenza Type B (PCR) NEGATIVE (Negative) RSV RNA Qual (PCR) NEGATIVE (Negative) SARS-CoV-2 RNA (RT-PCR) NEGATIVE (Negative) Independent Interpretation I performed an independent interpretation of an: EKG (Sinus heart rate is 100 FL QRS QTC within normal limits is no acute ST segment elevation noted.) and CT Scan (CT scan of the head was grossly negative for any acute evidence of bleeding) Radiology Impression Discussion of test interpretation with radiology: I have reviewed the radiologist's reading. Chronic Conditions Patient?s care impacted by: Hypertension Social Determinants Patient?s care significantly limited by Social Determinants of Health including: Problems related to primary support group Critical Care Time Critical Care Time Critical Care Time: Yes Total Critical Care Time: 40 Attestation: I have personally provided 40 minutes of critical care time exclusive of time spent on separately billable procedures. ?Time includes review of lab data, radiology results, discussion with consultants, and monitoring for potential decompensation. ?Interventions were performed as documented above Discharge Plan Discharge Clinical Impression: Acute CVA (cerebrovascular accident) Patient Disposition: Admitted As Inpatient Prescriptions: No Action sildenafil 50 mg tablet 50 mg PO DAILY PRN (Reason: sexual activity) Qty: 6 1RF atorvastatin 10 mg tablet 10 mg PO DAILY Qty: 90 3RF cholecalciferol (vitamin D3) [Vitamin D3] 25 mcg (1,000 unit) capsule 25 mcg PO DAILY Qty: 90 0RF cetirizine [Zyrtec] 10 mg tablet 10 mg PO DAILY 30 Days Qty: 30 0RF
--- NOTE | 2024-03-02 13:50 | ECG_ITS ---
Test Reason : CHST PRESSURE Blood Pressure : / mmHG Vent. Rate : 095 BPM Atrial Rate : 095 BPM P-R Int : 156 ms QRS Dur : 096 ms QT Int : 376 ms P-R-T Axes : 037 076 004 degrees QTc Int : 472 ms Normal sinus rhythm Normal ECG No previous ECGs available Referred By: Radha You Electronically Signed By:BRANDEE SLATER MD
[2024-03-02 14:23] LABS: MANUAL DIFF FLAG NO
[2024-03-02 14:24] LABS: Basophils Absolute Auto 0.1 X10*3/uL (0.0-0.2); Basophils Percent Auto 0.7 % (0-2); Eosinophils Absolute Auto 0.1 X10*3/uL (0.0-0.4); Eosinophils Percent Auto 1.1 % (0-4); Hematocrit 43.3 % (42.0-52.0); Hemoglobin 14.9 g/dl (14.0-18.0); Imm Gran Abs Auto 0.04 X10*3/uL (0.00-0.03); Imm Gran Pct Auto 0.5 % (0.0-0.4); Lymphocytes Percent Auto 36.5 % (20-40); Mean Corpuscular HGB Conc 34.4 g/dl (31.0-36.0); Mean Corpuscular Hemoglobin 28.2 pg (27.0-33.0); Mean Corpuscular Volume 81.9 fL (80.0-98.0); Mean Platelet Volume 10.1 fL (9.4-12.4); Monocytes Absolute Auto 0.6 X10*3/uL (0.1-1.2); Monocytes Percent Auto 7.3 % (2-11); Neutrophils Absolute Auto 4.4 x10*3/uL (2.0-8.3); Neutrophils Percent Auto 53.9 % (45-73); Platelet Count 329 X10*3/uL (160-400); Red Blood Count 5.29 X10*6/uL (4.60-5.80); Red Cell Distribution Width 14.9 % (11.0-16.0); White Blood Count 8.1 X10*3/uL (4.8-10.8)
[2024-03-02 14:47] LABS: Alanine Aminotransferase 41 U/L (0-40); Albumin Level 4.3 g/dL (3.5-5.0); Alkaline Phosphatase 93 U/L (39-117); Anion Gap 13 (12-20); Aspartate Amino Transferase 30 U/L (5-37); Bilirubin Total 1.1 mg/dL (0.0-1.0); Blood Urea Nitrogen 6 mg/dL (9-16); Calcium 8.9 mg/dL (8.4-10.2); Carbon Dioxide 25 mmol/L (22-29); Chloride 107 mmol/L (96-108); Estimated Glomerular Filt Rate > 60; Glucose Random 122 mg/dL (60-115); Potassium 3.1 mmol/L (3.3-5.1); Sodium 142 mmol/L (135-145); Total Protein 7.4 g/dL (6.5-8.0)
[2024-03-02 14:56] LABS: Troponin-I High Sensitivity < 2.7 ng/L (<3.5-35.0)
[2024-03-02 15:22] LABS: Influenza A PCR NEGATIVE (Negative); Influenza B PCR NEGATIVE (Negative); Resp Syncy Virus RNA Qual PCR NEGATIVE (Negative); SARS COV2 PCR INHOUSE NEGATIVE (Negative)
[2024-03-02 19:31] VITALS: BP 214/121; PULSE 92; RESP 18; TEMP 36.8; O2SAT 97
[2024-03-02 21:06] VITALS: BP 207/109; PULSE 87; RESP 16; TEMP 36.4; O2SAT 99
--- NOTE | 2024-03-02 21:20 | ED_ITS ---
HPI - General Adult General Chief complaint: General Medical Stated complaint: High blood pressure Time Seen by Provider: 03/02/24 20:34 History of Present Illness HPI narrative: Patient is a 43-year-old male presents today with having weakness on the left side. Mostly over the face and over the hand. Symptoms been ongoing for 2 days. Patient did not ask for help. No history diabetes. Positive history of hypertension but not under control. Currently on no medications. No fever no chills no cough no congestion. Related Data Previous Rx's Medication Instructions Recorded cetirizine 10 mg tablet (Zyrtec) 10 mg PO DAILY 30 days #30 tabs 11/06/22 sildenafil 50 mg tablet 50 mg PO DAILY PRN sexual activity 02/20/23 #6 tabs atorvastatin 10 mg tablet 10 mg PO DAILY #90 tabs 04/11/23 cholecalciferol (vitamin D3) 25 25 mcg PO DAILY #90 caps 01/17/24 mcg (1,000 unit) capsule (Vitamin D3) Allergies Allergy/AdvReac Type Severity Reaction Status Date / Time No Known Allergies Allergy Unknown UNKNOWN Verified 07/16/23 08:35 Review of Systems 2 Review of Systems: Positive facial weakness on the left Yes all other systems are reviewed and are negative PMFSH Past Medical History Medical History Erectile dysfunction Perforated Meckel's diverticulum Vitamin D deficiency Pure hypercholesterolemia Surgical History Hx of left knee surgery (~1997) Status post appendectomy (~07/31/07) Family History Family History Father Hypertension Mother Diverticulitis Brother Diverticulitis Social History Social History Housing: House Alcohol intake: current Alcohol intake frequency: holidays/special occasions only Alcohol type: beer and hard liquor Patient Tobacco Use Status: Never used Tobacco Smoked in Last 30 Days: No e-Cigarette/Vaping Use: Never Used Second Hand Smoke Exposure: Yes Use of substances other than those prescribed or required for medical reasons: No Advance Directives: No Advance Directives Information Provided: No Nutrition Risks: No Nutritional Risk service: No Current occupational status: employed 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[employer] Cognitive needs: No Hearing needs: No Vision needs: No Physical Exam ED Vital Signs: Vital Signs - 24 hr 03/02/24 13:48 03/02/24 19:31 03/02/24 21:06 Temperature 99.3 F 98.2 F 97.6 F Pulse Rate 101 H 92 87 Respiratory Rate 20 18 16 Blood Pressure 212/133 H 214/121 H 207/109 H Pulse Oximetry 100 97 99 Oxygen Delivery Method Room Air Room Air Room Air 03/02/24 22:12 03/02/24 22:59 Temperature 97.6 F Pulse Rate 74 75 Respiratory Rate 20 18 Blood Pressure 176/107 H 175/104 H Pulse Oximetry 98 97 Oxygen Delivery Method Room Air Room Air BMI result Body Mass Index 25.8 Appearance: Alert. Oriented X3. No acute distress. Eyes: Pupils equal, round and reactive to light. ENT: Pharynx normal. Neck: Normal inspection. Neck supple. No lymph nodes noted. No crepitus CVS: Normal heart rate and rhythm. Pulses normal. Normal S1 and S2 Respiratory: No respiratory distress. Breath sounds normal. No Wheezing. No rales Abdomen: Soft and nontender. No rigidity. No distention. good BS x4 Skin: Skin warm and dry. Normal skin color. Normal skin turgor. Extremities: No lower extremity edema. Neurovascular intact to all extremities. No Lacerations. No Rash Neuro: Oriented X 3. Slight facial droop noted over the left face both upper and lower. Subjective weakness over the left upper extremity. No sensory deficit. Moving all extermities. No slurred speech NIH Stroke Scale Time: 21:24 Level of Consciousness: Alert Level of Consciousness Questions: Answers both questions correctly Level of Consciousness Commands: Performs both tasks correctly Best Gaze: Normal Visual: No visual loss Facial Palsy: Minor paralyis Motor Arm (Right): No drift Motor Arm (Left): No drift Motor Leg (Right): No drift Motor Leg (Left): No drift Limb Ataxia: Absent Sensory: Normal Best Language: No aphasia Dysarthia: Normal Extinction and Inattention: No abnormality Score: 1 Medications Administered Generic Name Dose Route Start Last Admin Trade Name Freq PRN Reason Stop Dose Admin Acetaminophen 650 mg 03/03/24 00:07 03/03/24 00:23 Acetaminophen 325 Mg Tablet PO 650 mg Q6H PRN Administration Pain, Mild (Pain Scale 1-3) Amlodipine Besylate 5 mg 03/03/24 00:15 03/03/24 00:23 Amlodipine Besylate 5 Mg Tablet PO 5 mg BEDTIME SHYAM Administration Protocol Prednisone 60 mg 03/03/24 00:15 03/03/24 00:33 Prednisone 20 Mg Tablet PO 03/06/24 21:01 60 mg BEDTIME SHYAM Administration Discontinued Medications Generic Name Dose Route Start Last Admin Trade Name Karina PRN Reason Stop Dose Admin Aspirin 162 mg 03/03/24 00:56 03/03/24 01:42 Aspirin Enteric Coated 81 Mg Tablet. PO 03/03/24 00:57 162 mg ONCE ONE Administration Iohexol 100 ml 03/02/24 21:49 03/02/24 21:50 Iohexol 350 Mg/Ml 100 Ml Infus..Btl IV 03/02/24 21:50 70 ml ONCE ONE Administration Labetalol HCl 10 mg 03/02/24 21:09 03/02/24 21:32 Labetalol Hcl 100 Mg/20 Ml Vial IVPUSH 03/02/24 21:10 10 mg ONCE ONE Administration Potassium Chloride 20 meq 03/03/24 00:34 03/03/24 01:42 Potassium Chloride Er 20 Meq Tab.Er.Prt PO 03/03/24 00:35 20 meq ONCE ONE Administration Medical Decision Making Lab Data 03/02/24 14:01 03/02/24 14:01 Labs: Lab Results 03/02/24 03/02/24 Range/Units 14:01 23:03 WBC 8.1 (4.8-10.8) X10*3/uL RBC 5.29 (4.60-5.80) X10*6/uL Hgb 14.9 (14.0-18.0) g/dl Hct 43.3 (42.0-52.0) % MCV 81.9 (80.0-98.0) fL MCH 28.2 (27.0-33.0) pg MCHC 34.4 (31.0-36.0) g/dl RDW 14.9 (11.0-16.0) % Plt Count 329 (160-400) X10*3/uL MPV 10.1 (9.4-12.4) fL Immature Gran % (Auto) 0.5 H (0.0-0.4) % Neut % (Auto) 53.9 (45-73) % Lymph % (Auto) 36.5 (20-40) % [place] % (Auto) 7.3 (2-11) % Eos % (Auto) 1.1 (0-4) % Baso % (Auto) 0.7 (0-2) % Lymph # (Auto) 3.0 (1.2-4.9) X10*3/uL [place] # (Auto) 0.6 (0.1-1.2) X10*3/uL Eos # (Auto) 0.1 (0.0-0.4) X10*3/uL Baso # (Auto) 0.1 (0.0-0.2) X10*3/uL Abs Immat Gran (auto) 0.04 H (0.00-0.03) X10*3/uL Absolute Neuts (auto) 4.4 (2.0-8.3) x10*3/uL Absolute Nucleated RBC 0.000 (0.0-0.012) X10*3/uL Nucleated RBC % (auto) 0.0 (0.0-0.2) /100WBC Sodium 142 (135-145) mmol/L Potassium 3.1 L (3.3-5.1) mmol/L Chloride 107 (96-108) mmol/L Carbon Dioxide 25 (22-29) mmol/L Anion Gap 13 (12-20) BUN 6 L (9-16) mg/dL Creatinine 0.84 (0.5-1.4) mg/dL Estim Creat Clear Calc 106.0 Estimated GFR > 60 Random Glucose 122 H (60-115) mg/dL Calcium 8.9 (8.4-10.2) mg/dL Total Bilirubin 1.1 H (0.0-1.0) mg/dL AST 30 (5-37) U/L ALT 41 H (0-40) U/L Alkaline Phosphatase 93 (39-117) U/L Troponin I High Sens < 2.7 (<3.5-35.0) ng/L Total Protein 7.4 (6.5-8.0) g/dL Albumin 4.3 (3.5-5.0) g/dL Urine Color Yellow Urine Appearance Clear Urine pH 7.0 (5.0-9.0) Ur Specific [place] 1.020 (1.005-1.025) Urine Protein Negative (Neg-Trace) mg/dL Urine Glucose (UA) Negative (Negative) mg/dL Urine Ketones Negative (Negative) mg/dL Urine Blood Negative (Negative) Urine Nitrite Negative (Negative) Ur Leukocyte Esterase Negative (Negative) Influenza Type A (PCR) NEGATIVE (Negative) Influenza Type B (PCR) NEGATIVE (Negative) RSV RNA Qual (PCR) NEGATIVE (Negative) SARS-CoV-2 RNA (RT-PCR) NEGATIVE (Negative) Discharge Plan Discharge Clinical Impression: Acute CVA (cerebrovascular accident) Patient Disposition: Admitted As Inpatient
[2024-03-02] MEDS: Labetalol HCL 100 MG/20 ML VIAL 10 MG IVPUSH (21:32)
[2024-03-02] MEDS: iohexoL 350 MG/ML 100 ML INFUS..BTL IV (21:50)
[2024-03-02 22:12] VITALS: BP 176/107; PULSE 74; RESP 20; O2SAT 98
[2024-03-02 22:59] VITALS: BP 175/104; PULSE 75; RESP 18; TEMP 36.4; O2SAT 97
[2024-03-02 23:12] LABS: Appearance Urine Clear; Color Urine Yellow; Glucose Urine UA Negative (Negative); Leukocyte Esterase Urine Negative (Negative); Nitrite Urine Negative (Negative); Urine Blood Negative (Negative); Urine Ketones Negative (Negative); Urine Protein Negative (Neg-Trace)
[2024-03-03] MEDS: Acetaminophen 325 MG TABLET 650 MG PO (00:23)
[2024-03-03] MEDS: amLODIPine Besylate 5 MG TABLET PO (00:23)
[2024-03-03 00:26] VITALS: BP 158/105; PULSE 65; RESP 16; TEMP 36.9; O2SAT 97
--- NOTE | 2024-03-03 00:27 | P.HPHOSP_ITS ---
History of Present Illness Date of Service: 03/03/24 Attending physician on admission: Oliverio Barnard Chief Complaint: Left facial weakness Ramon Harding is a 43 years old man with past medical history significant for hyperlipidemia presents to the emergency department complaining of left facial weakness that he noted this morning after waking up. He also reported a minimal numbness to left 1st and 2nd toes which he attributes to sleeping on his left side. He commented that his neck stents. He also report blurry vision but denied double vision. He also have associated generalized headache, speech difficulty and decreased taste. He denied swallowing or gait difficulty. He does not have weakness to his left leg and did not report loss of consciousness. Denied chest pain, shortness on breath, cough, fevers chills. Denies history of Nuno's palsy however commented that his parents both have Nuno's palsy. He denies history of former diagnosis of hypertension but, mentioned that his blood pressure has been in the high side before. Denies history of strokes or diabetes mellitus. He denied alcohol abuse, tobacco smoking or illicit drug use. In the ED, on admission to the ED he was found to have a blood pressure 212/133. Most recent BP is 158/105. There is no tachycardia, tachypnea or fever. Blood workup showed no leukocytosis. Hemoglobin platelets are normal. There is mild hypokalemia (3.1). LFTs are basically unremarkable (minimally elevated bilirubin and ALT). Urinalysis is normal. Viral testing for influenza, COVID- 19 and RSV is negative. Head and neck CTA showed no acute intracranial abnormality without evidence of arterial high-grade stenosis or large vessel occlusion. ED tx: Labetalol 10 mg IV. Review of Systems 2 Review of Systems: All 12 systems were reviewed and normal except as noted in HPIElvin GREENBERG Medical History Erectile dysfunction Perforated Meckel's diverticulum Vitamin D deficiency Pure hypercholesterolemia Family History Father Hypertension Mother Diverticulitis Brother Diverticulitis Surgical History Hx of left knee surgery (~1997) Status post appendectomy (~07/31/07) Social History Housing: House Alcohol intake: current Alcohol intake frequency: holidays/special occasions only Alcohol type: beer and hard liquor Patient Tobacco Use Status: Never used Tobacco Smoked in Last 30 Days: No e-Cigarette/Vaping Use: Never Used Second Hand Smoke Exposure: Yes Use of substances other than those prescribed or required for medical reasons: No Advance Directives: No Advance Directives Information Provided: No Nutrition Risks: No Nutritional Risk service: No Current occupational status: employed 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[employer] Cognitive needs: No Hearing needs: No Vision needs: No Meds Allergies Allergy/AdvReac Type Severity Reaction Status Date / Time No Known Allergies Allergy Unknown UNKNOWN Verified 07/16/23 08:35 Active Medications: Current Medications Acetaminophen (Acetaminophen 325 Mg Tablet) 650 mg PO Q6H PRN PRN Reason: Pain, Mild (Pain Scale 1-3) Last Admin: 03/03/24 00:23 Dose: 650 mg Amlodipine Besylate (Amlodipine Besylate 5 Mg Tablet) 5 mg PO BEDTIME SHYAM; Protocol Last Admin: 03/03/24 00:23 Dose: 5 mg Artificial Tears (Artificial Tears 15 Ml Drops) 2 drop EYE-LEFT Q2H PRN PRN Reason: dry eye Enoxaparin Sodium (Enoxaparin Sodium 40 Mg/0.4 Ml Syringe) 40 mg SUBCUT Q24H SHYAM Prednisone (Prednisone 20 Mg Tablet) 60 mg PO BEDTIME SHYAM Stop: 03/06/24 21:01 Sodium Chloride (0.9 % Sodium Chloride Flush 3 Ml Syringe) 3 ml IVFLUSH QSHIFT SHYAM Valacyclovir HCl (Valacyclovir Hcl 500 Mg Tablet) 500 mg PO BID SHYAM Stop: 03/08/24 08:59 Physical Exam 2 Vital Signs and Narrative: Vital Signs: Last Vital Signs Temp 97.6 F 03/02/24 22:59 Pulse 75 03/02/24 22:59 Resp 18 03/02/24 22:59 BP 175/104 H 03/02/24 22:59 Pulse Ox 97 03/02/24 22:59 O2 Del Method Room Air 03/02/24 22:59 BMI result Body Mass Index 25.8 Constitutional - Awake and Alert, No apparent distress. Afebrile HEENT - Atraumatic, normocephalic. Pupils equally round reactive to light. EOMI. Heart - S1S2, RRR. Lungs - Normal lung expansion, Normal respiratory effort, No respiratory distress, CTA bilaterally Abdomen - NT / ND; +BS; No rebound or guarding Extremities - no calf tenderness bilaterally, no swelling Musculoskeletal - Normal inspection, normal ROM Skin - Warm/Dry Neurological - Alert & oriented x3. Left CN III and VII affected. Strength 5/5 all muscle groups. Sensation intact. Slurred speech. Psychological - Appropriate affect Results Labs 03/02/24 14:01 03/02/24 14:01 Labs: Laboratory Results - last 24 hr 03/02/24 03/02/24 14: 23:03 MCV 81.9 MCH 28.2 MCHC 34.4 RDW 14.9 Plt Count 329 MPV 10.1 Immature Gran % (Auto) 0.5 H Neut % (Auto) 53.9 Lymph % (Auto) 36.5 [place] % (Auto) 7.3 Eos % (Auto) 1.1 Baso % (Auto) 0.7 Lymph # (Auto) 3.0 [place] # (Auto) 0.6 Eos # (Auto) 0.1 Baso # (Auto) 0.1 Abs Immat Gran (auto) 0.04 H Absolute Neuts (auto) 4.4 Absolute Nucleated RBC 0.000 Nucleated RBC % (auto) 0.0 Anion Gap 13 Estim Creat Clear Calc 106.0 Estimated GFR > 60 Random Glucose 122 H Calcium 8.9 Total Bilirubin 1.1 H AST 30 ALT 41 H Alkaline Phosphatase 93 Troponin I High Sens < 2.7 Total Protein 7.4 Albumin 4.3 Urine Color Yellow Urine Appearance Clear Urine pH 7.0 Ur Specific [place] 1.020 Urine Protein Negative Urine Glucose (UA) Negative Urine Ketones Negative Urine Blood Negative Urine Nitrite Negative Ur Leukocyte Esterase Negative Influenza Type A (PCR) NEGATIVE Influenza Type B (PCR) NEGATIVE RSV RNA Qual (PCR) NEGATIVE SARS-CoV-2 RNA (RT-PCR) NEGATIVE Imaging Radiologist's Impressions: Impressions Chest X-Ray 03/02/24 14:11 IMPRESSION: Unremarkable examination. Head/Neck CTA 03/02/24 22:06 IMPRESSION: 1. No acute intracranial abnormality including hemorrhage, mass effect, hydrocephalus, or acute territorial edematous infarction. 2. Within the technical limitations of motion artifact and intracranial venous contamination, no evidence of arterial high grade stenosis or large vessel occlusion in the head or neck. Assessment and Plan (1) Weakness on left side of face: Status: Acute (2) Uncontrolled hypertension: Status: Acute (3) Hyperlipidemia: Qualifiers: Hyperlipidemia type: unspecified Qualified Code(s): E78.5 - Hyperlipidemia, unspecified Status: Acute Plan Ramon Harding is a 43 years old man admitted with: * Left facial weakness, inability to close left eye. 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 Rule out stroke: Patient complained of left hand numbness (neck radiculopathy?). Admit to hospitalist service. Telemetry. Empiric treatment for Nuno's palsy: Prednisone 60 mg PO X 5 days. Valtrex 500 mg PO bid X 5 days. Aspirin 81 mg p.o. daily. Check lipid panel and hemoglobin A1c. Brain MRI. Neurology consult. * Uncontrolled hypertension, improving. Start treatment with amlodipine. Labetalol 10 mg IV as needed. * Hyperlipidemia. Continue statin. Check lipid panel. Patient will need hospitalization for at least 2 midnight for left facial weakness + uncontrolled hypertension evaluation and treatment with continuous blood pressure monitoring, IV labetalol, empiric therapy for [place] palsy, brain MRI and neurology evaluation. Quality Stroke Does the patient have a stroke diagnosis?: No VTE Prior VTE?: No VTE Risk Level:: Medical - moderate - high VTE Device Contraindication: Treatment Not Indicated VTE Drug Contraindication: N/A - Med Ordered
[2024-03-03] MEDS: predniSONE 20 MG TABLET 60 MG PO (00:33)
[2024-03-03 01:27] VITALS: BP 205/106; PULSE 65; RESP 14; TEMP 36.9; O2SAT 98
[2024-03-03] MEDS: Potassium Chloride ER 20 MEQ TAB.ER.PRT PO (01:42)
[2024-03-03] MEDS: Aspirin Enteric Coated 81 MG TABLET.DR 162 MG PO (01:42)
[2024-03-03 01:44] VITALS: BP 152/85; PULSE 67; RESP 176; O2SAT 98
[2024-03-03 03:00] VITALS: BP 154/94; PULSE 74; RESP 16; O2SAT 97
[2024-03-03 04:44] VITALS: BP 116/76; PULSE 61; RESP 16; O2SAT 97
[2024-03-03 06:28] LABS: MANUAL DIFF FLAG NO
[2024-03-03 06:35] LABS: Basophils Percent Auto 0.3 % (0-2); Hematocrit 42.6 % (42.0-52.0); Hemoglobin 14.5 g/dl (14.0-18.0); Imm Gran Abs Auto 0.06 X10*3/uL (0.00-0.03); Imm Gran Pct Auto 0.5 % (0.0-0.4); Lymphocytes Absolute Auto 1.5 X10*3/uL (1.2-4.9); Lymphocytes Percent Auto 12.8 % (20-40); Mean Corpuscular Hemoglobin 28.2 pg (27.0-33.0); Mean Corpuscular Volume 82.7 fL (80.0-98.0); Mean Platelet Volume 10.5 fL (9.4-12.4); Monocytes Absolute Auto 0.2 X10*3/uL (0.1-1.2); Monocytes Percent Auto 1.8 % (2-11); Neutrophils Absolute Auto 9.8 x10*3/uL (2.0-8.3); Neutrophils Percent Auto 84.6 % (45-73); Platelet Count 338 X10*3/uL (160-400); Red Blood Count 5.15 X10*6/uL (4.60-5.80); Red Cell Distribution Width 15.1 % (11.0-16.0); White Blood Count 11.6 X10*3/uL (4.8-10.8)
--- NOTE | 2024-03-03 06:47 | PC.NURSE ---
Patient alert and oriented x3, BP improved 116-150/70-94, P 59-78, O2 Sat 97-98% RA. Patient medicated for headache with Tylenol, headache resolved. Left facial weakness and mild droop in changes, speech is slow, but clear. Patient passed bedside nursing swallow eval. 20 G IV line in R AC is patient, Patient uses urinal independently, skin is intact. Patient uses call menon appropriately and able to make his needs known.
[2024-03-03 06:56] LABS: Anion Gap 12 (12-20); Blood Urea Nitrogen 8 mg/dL (9-16); Calcium 8.8 mg/dL (8.4-10.2); Carbon Dioxide 21 mmol/L (22-29); Chloride 107 mmol/L (96-108); Cholesterol 193 mg/dL (<200); Creatinine Clr Calc Pharmacy 111.3; Estimated Glomerular Filt Rate > 60; Glucose Random 155 mg/dL (60-115); HDL Cholesterol 41 mg/dL (>40); LDL Cholesterol Calculated 104 mg/dL (<100); Potassium 3.4 mmol/L (3.3-5.1); Sodium 137 mmol/L (135-145); Triglycerides 240 mg/dL (<150)
[2024-03-03 07:22] LABS: Estimated Average Glucose 105 mg/dL; Hemoglobin A1c % 5.3 % (<6.0)
[2024-03-03 07:26] LABS: Reflex LDLD? No
--- NOTE | 2024-03-03 08:08 | PC.NURSE ---
Alert and oriented, mri screening form completed and faxed to MRI. Denies pain or discomfort but difficulty talking d/t swelling. Left eye swollen. Ate well for breakfast. vss
--- NOTE | 2024-03-03 09:04 | PHA.MEDREC ---
Pharmacy Consult ? Medication Reconciliation Pharmacy has completed the medication reconciliation. Reviewed med rec done by nursing
[2024-03-03] MEDS: 0.9 % Sodium Chloride Flush 3 ML SYRINGE IVFLUSH (09:08)
--- NOTE | 2024-03-03 09:31 | P.CNNE_ITS ---
History of Present Illness Data of Consult Service Date: 03/03/24 Primary Care Provider: Vinny Miller MD HPI Reason for consult: Facial weakness 43 years old man with relatively uncontrolled hypertension came to hospital with 1 or 2 days history of left-sided facial weakness. He said that this was happening for a while maybe for a day or 2. There was no preceding medical illness or cold or flu-like illness or any ear problem. He noted that his left side of face was flat and came to hospital. He denied any headache or pain. There was no change in mental status. There was no recent history of trauma. Sometime is vision was getting blurred. Review of Systems 2 Review of Systems: No recent cold or flu-like illness or rash. [facility] Past Medical History Medical History Erectile dysfunction Perforated Meckel's diverticulum Vitamin D deficiency Pure hypercholesterolemia Family History Family History Father Hypertension Mother Diverticulitis Brother Diverticulitis Surgical History Surgical History Hx of left knee surgery (~1997) Status post appendectomy (~07/31/07) Social History Social History Housing: House Alcohol intake: current Alcohol intake frequency: holidays/special occasions only Alcohol type: beer and hard liquor Patient Tobacco Use Status: Never used Tobacco Smoked in Last 30 Days: No e-Cigarette/Vaping Use: Never Used Second Hand Smoke Exposure: Yes Use of substances other than those prescribed or required for medical reasons: No Advance Directives: No Advance Directives Information Provided: No Nutrition Risks: No Nutritional Risk service: No Current occupational status: employed 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 Cognitive needs: No Hearing needs: No Vision needs: No Meds Allergies Allergy/AdvReac Type Severity Reaction Status Date / Time No Known Allergies Allergy Unknown UNKNOWN Verified 07/16/23 08:35 Active Medications: Current Medications Acetaminophen (Acetaminophen 325 Mg Tablet) 650 mg PO Q6H PRN PRN Reason: Pain, Mild (Pain Scale 1-3) Last Admin: 03/03/24 00:23 Dose: 650 mg Amlodipine Besylate (Amlodipine Besylate 5 Mg Tablet) 5 mg PO BEDTIME [facility]; Protocol Last Admin: 03/03/24 00:23 Dose: 5 mg Artificial Tears (Artificial Tears 15 Ml Drops) 2 drop EYE-LEFT Q2H PRN PRN Reason: dry eye Aspirin (Aspirin 81 Mg Tab.Chew) 81 mg PO DAILY [facility] Enoxaparin Sodium (Enoxaparin Sodium 40 Mg/0.4 Ml Syringe) 40 mg SUBCUT Q24H SHYAM Labetalol HCl (Labetalol Hcl 100 Mg/20 Ml Vial) 10 mg IVPUSH Q6H PRN PRN Reason: blood pressure >170 Prednisone (Prednisone 20 Mg Tablet) 60 mg PO BEDTIME SHYAM Stop: 03/06/24 21:01 Last Admin: 03/03/24 00:33 Dose: 60 mg Sodium Chloride (0.9 % Sodium Chloride Flush 3 Ml Syringe) 3 ml IVFLUSH QSHIFT [facility] Last Admin: 03/03/24 09:08 Dose: 3 ml Valacyclovir HCl (Valacyclovir Hcl 500 Mg Tablet) 500 mg PO BID SHYAM Stop: 03/08/24 08:59 Physical Exam 2 Vital Signs: Vital Signs: Last Vital Signs Temp 98.4 F 03/03/24 01:27 Pulse 61 03/03/24 04:44 Resp 16 03/03/24 04:44 BP 116/76 03/03/24 04:44 Pulse Ox 97 03/03/24 04:44 O2 Del Method Room Air 03/03/24 04:44 BMI result Body Mass Index 25.8 Neuro: Other: He is alert and awake with normal spontaneity of speech fluency comprehension and affect. There is moderate left-sided peripheral type facial weakness. Face otherwise did not reveal any significant abnormality. Tongue is midline. Visual cortez are full. Pupils are round reactive. There is no pronator drift. Deep tendon reflexes are trace to absent with flat plantars. Speech is normal. Results Labs 03/03/24 05:45 03/03/24 05:45 Labs: Short CBC 03/02/24 03/03/24 Range/Units 14:01 05:45 WBC 8.1 11.6 H (4.8-10.8) X10*3/uL Hgb 14.9 14.5 (14.0-18.0) g/dl Hct 43.3 42.6 (42.0-52.0) % Plt Count 329 338 (160-400) X10*3/uL BMP 03/02/24 03/03/24 14:01 05:45 Sodium 142 137 Potassium 3.1 L 3.4 Chloride 107 107 Carbon Dioxide 25 21 L BUN 6 L 8 L Creatinine 0.84 0.80 Calcium 8.9 8.8 Liver Function 03/02/24 Range/Units 14:01 Total Bilirubin 1.1 H (0.0-1.0) mg/dL AST 30 (5-37) U/L ALT 41 H (0-40) U/L Alkaline Phosphatase 93 (39-117) U/L Albumin 4.3 (3.5-5.0) g/dL Urine 03/02/24 Range/Units 23:03 Urine Color Yellow Urine Appearance Clear Urine pH 7.0 (5.0-9.0) Ur Specific [place] 1.020 (1.005-1.025) Urine Protein Negative (Neg-Trace) mg/dL Urine Glucose (UA) Negative (Negative) mg/dL CTA of brain and neck and MRI of brain were reviewed. No significant acute or chronic abnormality was noted. Assessment and Plan (1) Facial neuropathy: Status: Acute 43 years old man with uncontrolled hypertension and left facial neuropathy. There is no central lesion to explain this. He was not suffering from any viral illness. There was no ear abnormality or symptom. There was no rash at this time I would suggest a course of prednisone starting with 60 mg daily with a taper within next 2 weeks. Anti viral drug such as valacyclovir is also recommended. I would also recommend starting doxycycline and ordering Lyme serology. It could be stopped if Lyme test was negative. Is side from that, he should be educated about blood pressure control and its proper management. Procedures Date of Service Date of Service: 03/03/24
[2024-03-03] MEDS: valACYclovir HCL 500 MG TABLET PO (10:05)
[2024-03-03] MEDS: Enoxaparin Sodium 40 MG/0.4 ML SYRINGE SUBCUT (10:05)
[2024-03-03] MEDS: Aspirin 81 MG TAB.CHEW PO (10:05)
[2024-03-03] MEDS: Doxycycline Monohydrate 100 MG CAPSULE PO (11:01)
--- NOTE | 2024-03-03 13:19 | PM.DS ---
DS: Providers Provider Date of Service: 03/03/24 Date of admission: 03/03/24 00:07 Date of discharge: 03/03/24 Primary care physician: Vinny Miller MD Consults: 03/03/24 00:07 Consult to Neurology Routine Consulting Provider: [facility] Reason for consultation: Left facial weakness Has provider been notified: No Attending physician on discharge: Tor Camp Discharging clinician: Tor Camp DS: Diagnosis Discharge Diagnosis (1) Facial neuropathy: Status: Acute DS: Summary Hospital Course Hospital Course: Hpi: 43 years old man with past medical history significant for hyperlipidemia presents to the emergency department complaining of left facial weakness that he noted this morning after waking up. He also reported a minimal numbness to left 1st and 2nd toes which he attributes to sleeping on his left side. He commented that his neck stents. He also report blurry vision but denied double vision. He also have associated generalized headache, speech difficulty and decreased taste. He denied swallowing or gait difficulty. He does not have weakness to his left leg and did not report loss of consciousness. Denied chest pain, shortness on breath, cough, fevers chills. Denies history of Nuno's palsy however commented that his parents both have Nuno's palsy. He denies history of former diagnosis of hypertension but, mentioned that his blood pressure has been in the high side before. Denies history of strokes or diabetes mellitus. He denied alcohol abuse, tobacco smoking or illicit drug use. In the ED, on admission to the ED he was found to have a blood pressure 212/133. Most recent BP is 158/105. There is no tachycardia, tachypnea or fever. Blood workup showed no leukocytosis. Hemoglobin platelets are normal. There is mild hypokalemia (3.1). LFTs are basically unremarkable (minimally elevated bilirubin and ALT). Urinalysis is normal. Viral testing for influenza, COVID-19 and RSV is negative. Head and neck CTA showed no acute intracranial abnormality without evidence of arterial high-grade stenosis or large vessel occlusion. Hospital course: Patient was admitted for left-sided facial weakness-his serology for influenza RSV and COVID negative, plan serology pending, CT and MRI brain negative: Patient was seen by Neurology: Recommended give valacyclovir and prednisone for facial neuropathy . Also until the Lyme titer comes back neurology also suggested to add doxycycline, patient will follow-up with his PCP next week and follow it Lyme serology with PCP. In addition partially imaged 1.3 cm ovoid nodule partially inseparable from the deep lobe of the left parotid gland extending into the left parapharyngeal space that could reflect a primary parotid lesion or a lymph node: Follow-up with PCP for further management, consider outpatient workup for parotid nodule. Above is discussed with the patient in detail length he understand in agreement with the above plan. Time spent 40 minutes. Time Attestation Total time managing care of this patient today: 40 mintues. Discharge Coordination Time (in mins): 40 min Quality: Safe Use of Opioids Does Pt have an Active Cancer Diagnosis on the Problem List?: No Quality: Stroke Does the patient have a stroke diagnosis?: No Physical Exam Vital Signs: Vital Signs: Last Vital Signs Temp 98.4 F 03/03/24 01:27 Pulse 61 03/03/24 04:44 Resp 16 03/03/24 04:44 BP 116/76 03/03/24 04:44 Pulse Ox 97 03/03/24 04:44 O2 Del Method Room Air 03/03/24 04:44 BMI result Body Mass Index 25.8 Appearance: Alert.? Oriented X3. cvs: rrr, [id number] , no murmur res: clear to auscultation ,no rhonchii or wheezing abd: no rebound or guarding ,nt, bs present. ext pulses present , no cyanosis . neuro: axo3 , nonfocal. DS: Data Data Completed and Pending Labs on day of discharge: Laboratory Results - last 24 hr 03/02/24 03/02/24 03/03/24 14:01 23:03 05:45 WBC 8.1 11.6 H RBC 5.29 5.15 Hgb 14.9 14.5 Hct 43.3 42.6 MCV 81.9 82.7 MCH 28.2 28.2 MCHC 34.4 34.0 RDW 14.9 15.1 Plt Count 329 338 MPV 10.1 10.5 Immature Gran % (Auto) 0.5 H 0.5 H Neut % (Auto) 53.9 84.6 H Lymph % (Auto) 36.5 12.8 L [place] % (Auto) 7.3 1.8 L Eos % (Auto) 1.1 0.0 Baso % (Auto) 0.7 0.3 Lymph # (Auto) 3.0 1.5 [place] # (Auto) 0.6 0.2 Eos # (Auto) 0.1 0.0 Baso # (Auto) 0.1 0.0 Abs Immat Gran (auto) 0.04 H 0.06 H Absolute Neuts (auto) 4.4 9.8 H Absolute Nucleated RBC 0.000 0.000 Nucleated RBC % (auto) 0.0 0.0 Sodium 142 137 Potassium 3.1 L 3.4 Chloride 107 107 Carbon Dioxide 25 21 L Anion Gap 13 12 BUN 6 L 8 L Creatinine 0.84 0.80 Estim Creat Clear Calc 106.0 111.3 Estimated GFR > 60 > 60 Random Glucose 122 H 155 H Estimat Average Glucose 105 Hemoglobin A1c % 5.3 Calcium 8.9 8.8 Total Bilirubin 1.1 H AST 30 ALT 41 H Alkaline Phosphatase 93 Troponin I High Sens < 2.7 Total Protein 7.4 Albumin 4.3 Triglycerides 240 H Cholesterol 193 LDL Cholesterol, Calc 104 H HDL Cholesterol 41 Urine Color Yellow Urine Appearance Clear Urine pH 7.0 Ur Specific [place] 1.020 Urine Protein Negative Urine Glucose (UA) Negative Urine Ketones Negative Urine Blood Negative Urine Nitrite Negative Ur Leukocyte Esterase Negative Influenza Type A (PCR) NEGATIVE Influenza Type B (PCR) NEGATIVE RSV RNA Qual (PCR) NEGATIVE SARS-CoV-2 RNA (RT-PCR) NEGATIVE Imaging Chest x-ray: Radiologist's impression: ITS Impressions Chest X-Ray 03/02/24 14:11 IMPRESSION: Unremarkable examination. Head/Neck CTA 03/02/24 22:06 IMPRESSION: 1. No acute intracranial abnormality including hemorrhage, mass effect, hydrocephalus, or acute territorial edematous infarction. 2. Within the technical limitations of motion artifact and intracranial venous contamination, no evidence of arterial high grade stenosis or large vessel occlusion in the head or neck. Brain MRI 03/03/24 08:55 IMPRESSION: - No acute infarcts. Mild nonspecific T2 signal changes within the supratentorial white matter. - There is a partially imaged 1.3 cm ovoid nodule partially inseparable from the deep lobe of the left parotid gland extending into the left parapharyngeal space that could reflect a primary parotid lesion or a lymph node. Discharge Plan Discharge Anticipated Discharge Date/Time: 03/03/24 11:35 Patient Disposition: Home, Self-Care Discharge Diagnosis: facial neuropathy Referrals: Vinny Miller MD [Primary Care Provider] - 1 Week Discharge Medications: New valacyclovir [Valtrex] 1 gram tablet 1,000 mg PO TID Qty: 29 0RF prednisone 10 mg tablet See Taper PO DIRECTED Qty: 39 0RF Taper: Prednisone 60 mg daily for 3 Days and 0 Hour 40 mg daily for 3 Days and 0 Hour 20 mg daily for 3 Days and 0 Hour 10 mg daily for 3 Days and 0 Hour Rx Instructions: see taper instructions doxycycline hyclate 100 mg capsule 100 mg PO BID Qty: 60 0RF Rx Instructions: please stop if lyme serology negative Continued atorvastatin 10 mg tablet 10 mg PO DAILY Qty: 90 3RF cholecalciferol (vitamin D3) [Vitamin D3] 25 mcg (1,000 unit) capsule 25 mcg PO DAILY Qty: 90 0RF Discharge Orders: Discharge Order (Routine); Ordered 03/03/24 Ordered By: Tor Camp Diet: Advance to usual diet Activity on Discharge: As tolerated Stand Alone Forms: Patient Portal Discharge page Activity Restrictions/Additional Instructions: Care Plan Goals: Patient was admitted for left-sided facial weakness-his serology for influenza RSV and COVID negative, plan serology pending, CT and MRI brain negative: Patient was seen by Neurology: Recommended give valacyclovir and prednisone for facial neuropathy . Also until the Lyme titer comes back neurology also suggested to add doxycycline, patient will follow-up with his PCP next week and follow it Lyme serology with PCP. In addition partially imaged 1.3 cm ovoid nodule partially inseparable from the deep lobe of the left parotid gland extending into the left parapharyngeal space that could reflect a primary parotid lesion or a lymph node: Follow-up with PCP for further management, consider outpatient workup for parotid nodule. Above is discussed with the patient in detail length he understand in agreement with the above plan. Health Concerns: As above. Plan of Treatment: As above. Assessment: As above. Discharge Date/Time: 03/03/24 12:29
[2024-03-04 22:53] LABS: Lyme Abs Screen <0.90 index
== END 2024-03-03 12:29 | disposition home or self-care (01) | DRG 74 ==
LOC: HO.ED 23:41 → HO.EDOVER 03-03 00:15
PROVIDERS: Registered Nurse Emergency; Admitting Provider Internal Medicine; Emergency Provider Emergency Medicine Emergency Medical Services; PCP Internal Medicine; Visit Provider Internal Medicine
DX: G51.9 Disorder of facial nerve, unspecified (principal); E78.5 Hyperlipidemia, unspecified; Z20.822 Contact with and (suspected) exposure to COVID-19; Z79.899 Other long term (current) drug therapy
CPT/HCPCS: 0241U; 36415; 70496; 70498; 70551; 71046; 80048; 80053; 80061; 81003; 83036; 84484; 85025; 86617; 86618; 93005; 99285; J1650; J1920; Q9967

== ENCOUNTER → 2024-03-02 13:50 | Outpatient (BNV) | payer OTHER, SELFPAY | PROVIDERS: PCP Internal Medicine; Visit Provider Internal Medicine Cardiovascular Disease | DX: R07.9 Chest pain, unspecified (principal) | CPT/HCPCS: 93010 ==

== ENCOUNTER → 2024-03-03 00:07 | Outpatient (BNV) | payer OTHER, SELFPAY | PROVIDERS: Admitting Provider Internal Medicine; Emergency Provider Emergency Medicine Emergency Medical Services; PCP Internal Medicine; Visit Provider Internal Medicine | DX: G51.9 Disorder of facial nerve, unspecified (principal) | CPT/HCPCS: 99234; 99499 ==

== ENCOUNTER → 2024-03-03 00:07 | Outpatient (BNV) | payer OTHER, SELFPAY | PROVIDERS: Admitting Provider Internal Medicine; Emergency Provider Emergency Medicine Emergency Medical Services; PCP Internal Medicine; Visit Provider Psychiatry & Neurology Neurology | DX: G51.9 Disorder of facial nerve, unspecified (principal); I10 Essential (primary) hypertension | CPT/HCPCS: 99222 ==

== ENCOUNTER 2024-03-10 12:42 | Outpatient (AMB) | payer OTHER, SELFPAY ==
--- NOTE | 2024-03-10 12:49 | MHC.PC.OV ---
Vital Signs 03/10/24 12:51 Height 5 ft 7 in Weight 169 lb 8 oz BMI 26.5 BP 164/90 H Blood Pressure Location Lt brachial Position Sitting Pulse 103 H Pulse Source Pulse Oximeter Pulse Oximetry (%) 98 Oxygen Delivery Method Room Air Intake Visit Reasons: Physical Exam Intake Note: Patient is here today for a physical Analytics Leader Required: No Ems Manager: Present Accompanied by: Sister Allergies No Known Allergies Allergy (Unknown, Verified 03/10/24 14:10) UNKNOWN Medication List - Last Reconciled 03/10/24 by Vinny Miller MD atorvastatin 10 mg PO DAILY cholecalciferol (vitamin D3) (Vitamin D3) 25 mcg PO DAILY doxycycline hyclate 100 mg PO BID prednisone See Taper mg PO DIRECTED prednisone 4 tablets x 3 days, then 3 tablets x 3 days, then 2 tablets x 3 days, then 1 tablet x 3 days 12 days valacyclovir (Valtrex) 1,000 mg PO TID Tobacco use date assessed: 03/10/24 Dental Screening Dental Screen Date: 03/10/24 Did you have a dental visit in the last 12 months?: No Did you have a dental problem in the last 6 months where you did not have access to dental care?: No Was dental information given to patient?: Patient has dentist HPI Physical Exam HPI Details Patient comes in today for his [facility] follow up visit - he was originally scheduled for an annual physical exam but with his current issues and recent ER visit, have advised him that he presently has some more urgent issues to address first and we can reschedule his annual physical to a later date Patient went to the ER last week on 03/03/2024 when he woke up that morning with increased left facial numbness and weakness He recalls also experiencing some headaches at the time, as well as a perceptible decrease in his taste as well as some difficulty with his speech but he denied experiencing any trouble with swallowing or dizziness Work ups done, including labs, serology and brain MRI all came back unrevealing His brain MRI did reveal incidentally a 1.3 cm nodule that may be a primary left parotid lesion or a lymph node and he was advised to follow up with PCP to consider further outpatient work up for this His serologies all came back negative, including influenza, RSV and COVID as well as test for Lyme disease but he was treated empirically with oral Doxycycline x 1 week per neurology recommendations Head and neck CTA done at the ER revealed no acute abnormalities or evidence of arterial stenosis or large vessel occlusion He is currently still finishing up his Valacyclovir and his oral Prednisone taper and just finished his 7 days course of Doxycycline States that presently, other than his left facial numbness/weakness, he feels okay He denies any headaches or dizziness Denies any chest pains, no SOB No nausea/vomiting, no abdominal pain No change in bowel habits noted He recalls that his blood pressure was very high when he first presented to the ER last week and it gradually came down when he was being evaluated at the ER although it was still higher than normal at 158/105 when he was close to being discharged He is accompanied by his sister today, who is going to be filling out an HCP form for patient His sister relates that their father had a stroke a few years ago and she is concerned that patient's current symptoms are also due to a CVA and she wanted to have the HCP form filled out in case something worse happens to patient [facility] Medical History Erectile dysfunction Perforated Meckel's diverticulum Vitamin D deficiency Pure hypercholesterolemia Surgical History Hx of left knee surgery (~1997) Status post appendectomy (~07/31/07) Family History Father Hypertension Mother Diverticulitis Brother Diverticulitis Social History Housing: House Alcohol intake: current Alcohol intake frequency: holidays/special occasions only Alcohol type: beer and hard liquor Patient Tobacco Use Status: Never used Tobacco e-Cigarette/Vaping Use: Never Used Second Hand Smoke Exposure: Yes service: No Current occupational status: employed 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 1. Little interest or pleasure in doing things: not at all 2. Feeling down, depressed, or hopeless: not at all 3. Trouble falling or staying asleep, or sleeping too much: not at all 4. Feeling tired or having little energy: not at all 5. Poor appetite or overeating: not at all 6. Feeling bad about yourself - or that you are a failure or have let yourself or your family down: not at all 7. Trouble concentrating on things, such as reading the newspaper or watching television: not at all 8. Moving or speaking so slowly that other people could have noticed. Or the opposite - being so fidgety or restless that you have been moving around a lot more than usual: not at all 9. Thoughts that you would be better off or of hurting yourself in some way: not at all Total score: 0 Depression Screening Interpretation: Negative Depression Screening Done: Yes 90851 - PHQ-9 Billing: Yes Source: Developed by Drs. Kimani Solorzano, Molly Mckinney, Albaro Jensen and colleagues, with an educational wilbur from [employer]. Thrive Questionnaire Date Thrive assessed: 03/10/24 I am a: Patient What is your living situation today?: I have a steady place to live Within the past 12 months, did the food you bought not last and you didn't have the money to get more?: Never true Within the past 12 months, did you worry whether your food would run out before you got money to buy more?: Never true Do you have trouble paying for medicines?: No Do you have trouble getting transportation to medical appointments?: No Do you have trouble paying your heating and electricity bill?: No Do you have trouble taking care of your child, family member or friend?: No Do you have trouble with day-to-day activities such as bathing, preparing meals, shopping, managing finances, etc.?: No Are you currently unemployed and looking for a job?: No Are you interested in more education?: No Currently or been in a relationship where the following occur: no concerns reported THRIVE Score: 0 AUDIT C Alcohol Use Questionnaire (AUDIT-C) 1. How often do you have a drink containing alcohol?: Monthly or less 2. How many drinks containing alcohol do you have on a typical day when you are drinking?: 1 or 2 Total Score: 1 Score Reviewed/Action Taken: Yes MALGORZATA-7 AMB Questionnaire MALGORZATA-7 Date MALGORZATA - 7 assessed: 03/10/24 Feeling nervous, anxious, or on edge: 1 = Several days Not being able to stop or control worryin = Several days Worrying too much about different things: 1 = Several days Trouble relaxin = Several days Being so restless that it is hard to sit still: 2 = More than half the days Becoming easily annoyed or irritable: 2 = More than half the days Feeling afraid as if something awful might happen: 0 = Not at all Total MALGORZATA-7 score (0-4 normal; 5-9 mild; 10-14 moderate; 15-21 severe): 8 Source: Developed by Drs. Kimani Solorzano, Molly Mckinney, Albaro Jensen and colleagues, with an educational wilbur from [employer]. Review of Systems Const Denies chills, Reports fatigue (mild), Denies fever(s) and Denies headache(s) Eyes Details: is unable to completely close his left eye Denies blurry vision and Denies eye pain ENT Denies dysphagia, Denies dizziness, Denies otalgia, Denies headache(s), Reports neck pain (mild, on the left side), Denies odynophagia and Denies sore throat Card Denies chest pain, Denies palpitations and Denies dyspnea Resp Denies cough and Denies dyspnea GI Denies abdominal pain, Denies constipation, Denies dysphagia, Denies heartburn, Denies diarrhea, Denies nausea, Denies odynophagia and Denies vomiting Denies dysuria, Denies nocturia and Denies urinary frequency Musc Denies abnormal gait, Denies back pain, Reports neck pain (mild, on the left side) and Reports numbness (over the left side of the face) Skin/Breast Denies rash Neuro Details: (+) numbness / paralysis of the entire left side of the face Denies abnormal gait, Denies dizziness, Denies headache(s), Denies memory loss and Reports numbness (over the left side of the face) Psych Denies memory loss Endo Reports fatigue (mild) and Denies palpitations Physical exam (Primary Care) Vital Signs: Last Vital Signs Pulse 103 H 03/10/24 12:51 BP 164/90 H 03/10/24 12:51 Pulse Ox 98 03/10/24 12:51 Oxygen Delivery Method Room Air 03/10/24 12:51 BMI result Body Mass Index 26.5 Tobacco/Smoking Status: Tobacco use Status Tobacco use date assessed 03/10/24 03/10/24 12:56 Patient Tobacco Use Status Never used Tobacco 03/10/24 12:56 e-Cigarette/Vaping Use Never Used 03/10/24 12:56 PHQ-9: PHQ-9 Score PHQ-9: Total score 0 03/10/24 14:53 Depression Screening Interpretation: Negative Thrive Assessment: Date of Thrive Assessment Date Thrive assessed 03/10/24 03/10/24 12:56 Currently or been in a relationship where the following occur: no concerns reported Const General: no acute distress and alert Orientation/consciousness: patient oriented x3 HENMT Ears: TM's normal bilaterally and EAC's normal Face and sinus: Yes Flattened naso-labial fold present (shallow - on the left side) Mouth: tongue normal (midline) Throat: Yes posterior oropharynx normal, Yes tonsils normal (no TP congestion) and Yes uvula midline Eyes Eyelids: Yes lid lag (left upper eyelid) Conjunctivae: conjunctivae normal Pupils: Equal, round and reactive pupils present EOM: EOMs intact bilaterally Neck Neck: Yes supple and Yes lymphadenopathy (on the left posterior cervical area ) Resp Auscultation: clear to auscultation bilaterally, no rales and no wheezes Cardio Rate: regular rate Rhythm: regular rhythm Heart sounds: no murmurs GI Palpation (GI): Soft to palpation and nontender Auscultation: normal bowel sounds General: Yes no CVA tenderness Back/Spine/Pelvis Back: no CVA tenderness Skin Rashes: no rashes Neuro General: patient oriented x3, gait normal, moves all extremities and no focal motor deficits Cranial nerves: Yes Equal, round and reactive pupils present and Yes Midline tongue present Cognition (Neuro): normal cognition Gait exam (Neuro): Normal gait present Motor exam (neuro): 5/5 motor strength present throughout Extrem General: Yes no clubbing, cyanosis or edema Assessment and Plan Assessment & Plan (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 - Disorder of facial nerve, unspecified Plan: All of his recent work ups, including his head CT and MRI, head and neck CTA, as well as his serologies, have come back negative or unrevealing Discussed with patient that 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 Reassured that 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 and that all of his symptoms should gradually recover or revert back to normal over time, which can be anywhere from a few weeks to a few months He is instructed to continue and finish up his Valacyclovir and oral Prednisone taper As a precaution, will refer him to neurology for further recommendations and advised that 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 and have no other concerns or suggestions, then he can return to work at any time depending on when he feels comfortable to return to work (2) Lagophthalmos of left upper eyelid: Code(s): H02.204 - Unspecified lagophthalmos left upper eyelid Qualifiers: Lagophthalmos type: paralytic Qualified Code(s): H02.234 - Paralytic lagophthalmos left upper eyelid Plan: Have advised patient that this is one of the more common problems patients encounter with Nuno's Palsy and reassured that this should also revert back to normal in time but until then, he needs to make sure he does whatever he needs to get his eyes to close up (can used anything from tape to eye patch) so his eye does not dry up, which in turn can lead to other more serious complications (3) Elevated blood pressure reading without diagnosis of hypertension: Code(s): R03.0 - Elevated blood-pressure reading, without diagnosis of hypertension Plan: Reinforced low sodium diet Have advised him that his elevated blood pressure may be partly due to his anxiety regarding his current situation but may also now be somewhat due to the effects of the prednisone that he is taking Have advised patient to continue monitoring his blood pressure regularly for now (goal is systolic BP of 120 mm or less and diastolic of 85 mm or less) Will also have one of our nurse navigators reach out to him in a couple of weeks or so to help him keep track of his blood pressure (4) Nodule of parotid gland: Code(s): K11.8 - Other diseases of salivary glands Plan: On the left side - this is seen incidentally on his brain MRI done at the ER last week Have advised him that with his current symptoms, he also has some left cervical lymph nodes and this finding may be related to that Would recommend to wait for a few months and at his next appointment, if his left cervical lymph nodes have resolved, will then consider sending him for a dedicated soft tissue US or parotid gland CT for further evaluation (5) Pure hypercholesterolemia: Code(s): E78.00 - Pure hypercholesterolemia, unspecified Plan: Reinforced low cholesterol diet Continue Atorvastatin 10 mg QD Will have him recheck his labs and fasting lipids in 2 to 3 months for follow up (6) Vitamin D deficiency: Code(s): E55.9 - Vitamin D deficiency, unspecified Plan: Conitnue Vitamin D3 1000 units QD Plan To return in 2 to 3 months for his annual physical examination Orders: Orders Comprehensive [place]. Panel Fast 3 Months E78.00 - Pure hypercholesterolemia, unspecified Complete Blood Count Auto Diff 3 Months D64.9 - Anemia, unspecified Lipid Panel 3 Months E78.00 - Pure hypercholesterolemia, unspecified Referrals Neurology Referral G51.9 - Disorder of facial nerve, unspecified Coding Level of Care Code Est Pt Level 4 (23395) Diagnoses Facial neuropathy G51.9 Paralytic lagophthalmos of left upper eyelid H02.234 Lagophthalmos type: paralytic Elevated blood pressure reading without diagnosis of hypertension R03.0 Nodule of parotid gland K11.8 Pure hypercholesterolemia E78.00 Vitamin D deficiency E55.9
[2024-03-10 12:51] VITALS: BP 164/90; PULSE 103; O2SAT 98; BMI 26.5
== END 2024-03-10 13:36 | disposition home or self-care (01) ==
PROVIDERS: PCP Internal Medicine; Visit Provider Internal Medicine
DX: G51.9 Disorder of facial nerve, unspecified (principal); H02.23 Paralytic lagophthalmos; R03.0 Elevated blood-pressure reading, without diagnosis of hypertension; K11.8 Other diseases of salivary glands; E78.00 Pure hypercholesterolemia, unspecified; E55.9 Vitamin D deficiency, unspecified
CPT/HCPCS: 99214

== ENCOUNTER 2024-03-16 09:41 | Outpatient (AMB) | payer OTHER, SELFPAY ==
--- NOTE | 2024-03-16 09:45 | MHC.PC.OV ---
Vital Signs 03/16/24 09:49 Height 5 ft 7 in Weight 170 lb 4 oz BMI 26.7 BP 146/90 H Blood Pressure Location Rt brachial Position Sitting Pulse 86 Pulse Source Pulse Oximeter Pulse Oximetry (%) 98 Oxygen Delivery Method Room Air Intake Visit Reasons: follow up Intake Note: Patient is here to follow up on High Blood pressure, Facial Neuropathy. Front Office Attendant Required: No Net Web Developer: Not Required per policy Accompanied by: Self / Same As Patient Allergies No Known Allergies Allergy (Unknown, Verified 03/16/24 10:52) UNKNOWN Medication List - Last Reconciled 03/16/24 by Vinny Miller MD atorvastatin 10 mg PO DAILY cholecalciferol (vitamin D3) (Vitamin D3) 25 mcg PO DAILY doxycycline hyclate 100 mg PO BID prednisone See Taper mg PO DIRECTED prednisone 4 tablets x 3 days, then 3 tablets x 3 days, then 2 tablets x 3 days, then 1 tablet x 3 days 12 days Tobacco use date assessed: 03/10/24 Dental Screening Dental Screen Date: 03/10/24 HPI follow up HPI Details Patient comes in today for a follow up of his elevated blood pressure and Nuno's palsy States that the left side of his face is still paralyzed but he is starting to get some feelings/sensations again whereas his left face felt completely numb about a week ago He is also experiencing on and off sensation of pain/congestion in his left ear lately; denies any ear drainage or problems with his hearing He is still finishing up his Rx for Doxycycline and oral Prednisone - thinks he has a couple of days left on both of his Rx Notes that his blood pressure is also doing much better lately and he is scheduled to see our nurse navigator in 10 days for a blood pressure check He denies any headaches or dizziness Denies any chest pains, no SOB No nausea/vomiting, no abdominal pain No change in bowel habits noted [facility] Medical History Elevated blood pressure reading without diagnosis of hypertension Nuno's palsy Hyperlipidemia Acute CVA (cerebrovascular accident) Erectile dysfunction Perforated Meckel's diverticulum Vitamin D deficiency Pure hypercholesterolemia Surgical History Hx of left knee surgery (~1997) Status post appendectomy (~08/30/07) Family History Father Hypertension Mother Diverticulitis Brother Diverticulitis Social History Housing: House Alcohol intake: current Alcohol intake frequency: holidays/special occasions only Alcohol type: beer and hard liquor Patient Tobacco Use Status: Never used Tobacco e-Cigarette/Vaping Use: Never Used Second Hand Smoke Exposure: Yes service: No Current occupational status: employed 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 Cognitive needs: No Hearing needs: No Vision needs: No Questionnaire Thrive Questionnaire Date Thrive assessed: 03/10/24 MALGORZATA-7 AMB Questionnaire MALGORZATA-7 Date MALGORZATA - 7 assessed: 03/10/24 Source: Developed by Drs. Kimani Solorzano, Molly Mckinney, Albaro Jensen and colleagues, with an educational wilbur from [email or web address]. Review of Systems Const Denies chills, Denies fatigue, Denies fever(s) and Denies headache(s) Eyes Details: is still unable to completely close his left eye Denies blurry vision and Denies eye pain ENT Denies dysphagia, Denies dizziness, Reports otalgia (more of on and off discomfort/fullness in the left ear), Denies headache(s), Reports neck pain (mild, on the left side), Denies odynophagia and Denies sore throat Card Denies chest pain, Denies palpitations and Denies dyspnea Resp Denies cough and Denies dyspnea GI Denies abdominal pain, Denies constipation, Denies dysphagia, Denies heartburn, Denies diarrhea, Denies nausea, Denies odynophagia and Denies vomiting Denies dysuria, Denies nocturia and Denies urinary frequency Musc Denies abnormal gait, Denies back pain, Reports neck pain (mild, on the left side) and Reports numbness (over the left side of the face) Skin/Breast Denies rash Neuro Details: (+) numbness / paralysis of the entire left side of the face Denies abnormal gait, Denies dizziness, Denies headache(s), Denies memory loss and Reports numbness (over the left side of the face) Psych Denies memory loss Endo Denies fatigue and Denies palpitations Physical exam (Primary Care) Vital Signs: Last Vital Signs Pulse 86 03/16/24 09:49 BP 146/90 H 03/16/24 09:49 Pulse Ox 98 03/16/24 09:49 Oxygen Delivery Method Room Air 03/16/24 09:49 BMI result Body Mass Index 26.7 Tobacco/Smoking Status: Tobacco use Status Tobacco use date assessed 03/10/24 03/16/24 09:45 Patient Tobacco Use Status Never used Tobacco 03/16/24 09:45 e-Cigarette/Vaping Use Never Used 03/16/24 09:45 Thrive Assessment: Date of Thrive Assessment Date Thrive assessed 03/10/24 03/16/24 09:45 Const General: no acute distress and alert HENMT Ears: TM's normal bilaterally and EAC's normal Face and sinus: Yes Flattened naso-labial fold present (shallow - on the left side) Mouth: tongue normal (midline) Throat: Yes posterior oropharynx normal, Yes tonsils normal (no TP congestion) and Yes uvula midline Eyes Eyelids: Yes lid lag (left upper eyelid) Conjunctivae: conjunctivae normal Pupils: Equal, round and reactive pupils present EOM: EOMs intact bilaterally Neck Neck: Yes supple and Yes lymphadenopathy (on the left posterior cervical area ) Resp Auscultation: clear to auscultation bilaterally, no rales and no wheezes Cardio Rate: regular rate Rhythm: regular rhythm Heart sounds: no murmurs GI Palpation (GI): Soft to palpation and nontender Auscultation: normal bowel sounds General: Yes no CVA tenderness Back/Spine/Pelvis Back: no CVA tenderness Skin Rashes: no rashes Neuro General: gait normal, moves all extremities and no focal motor deficits Cranial nerves: Yes Equal, round and reactive pupils present and Yes Midline tongue present Cognition (Neuro): normal cognition Gait exam (Neuro): Normal gait present Motor exam (neuro): 5/5 motor strength present throughout Extrem General: Yes no clubbing, cyanosis or edema Assessment and Plan Assessment & Plan (1) Elevated blood pressure reading without diagnosis of hypertension: Code(s): R03.0 - Elevated blood-pressure reading, without diagnosis of hypertension Plan: Patient's blood pressure is still elevated today but it has improved significantly from last week Have advised him again that his elevated blood pressure may be partly due to his anxiety and also the effects of his oral prednisone He is reminded to continue monitoring his blood pressure regularly for now (goal is systolic BP of 120 mm or less and diastolic of 85 mm or less); he is also scheduled to return on 03/26/24 for a blood pressure check with our nurse navigator Reinforced low sodium diet (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 Plan: Have reassured patient again that 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 and that all of his symptoms will gradually resolve over time, which can be anywhere from a few weeks to a few months He is instructed to finish up his current Valacyclovir and oral Prednisone taper Rx He was also referred to neurology for further recommendations - is currently scheduled to be seen at the end of next month (April 2024) (3) Lagophthalmos of left upper eyelid: Code(s): H02.204 - Unspecified lagophthalmos left upper eyelid Qualifiers: Lagophthalmos type: paralytic Qualified Code(s): H02.234 - Paralytic lagophthalmos left upper eyelid Plan: Have reminded patient that he needs to make sure to keep his left eye closed (can used anything from tape to eye patch) especially when he is sleeping at night so his eye does not dry up, which in turn can lead to other more serious complications (4) Nodule of parotid gland: Code(s): K11.8 - Other diseases of salivary glands Plan: On the left side - this was seen incidentally on his brain MRI done at the ER a couple of weeks ago Have advised him that he currently has some left cervical lymph nodes that may be related to his current Nuno's Palsy / left facial neuropathy Have recommended that he wait for a few months and at his next appointment, if his left cervical lymph nodes have resolved, will then consider sending him for a dedicated soft tissue US or parotid gland CT for further evaluation (5) Pure hypercholesterolemia: Code(s): E78.00 - Pure hypercholesterolemia, unspecified Plan: Reinforced low cholesterol diet Continue Atorvastatin 10 mg QD Will have him recheck his labs and fasting lipids in 2 to 3 months for follow up (6) Vitamin D deficiency: Code(s): E55.9 - Vitamin D deficiency, unspecified Plan: Conitnue Vitamin D3 1000 units QD Plan To return as scheduled in June 2024 for his annual physical examination Coding Level of Care Code Est Pt Level 3 (04817) Diagnoses Elevated blood pressure reading without diagnosis of hypertension R03.0 Nuno's palsy G51.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
[2024-03-16 09:49] VITALS: BP 146/90; PULSE 86; O2SAT 98; BMI 26.7
== END 2024-03-16 10:38 | disposition home or self-care (01) ==
PROVIDERS: PCP Internal Medicine; Visit Provider Internal Medicine
DX: R03.0 Elevated blood-pressure reading, without diagnosis of hypertension (principal); G51.0 Bell's palsy; H02.23 Paralytic lagophthalmos; K11.8 Other diseases of salivary glands; E78.00 Pure hypercholesterolemia, unspecified; E55.9 Vitamin D deficiency, unspecified
CPT/HCPCS: 99213

== ENCOUNTER 2024-06-05 14:36 | Outpatient (AMB) | payer OTHER, SELFPAY ==
[2024-06-05 14:38] VITALS: BP 168/98; PULSE 56; O2SAT 98; BMI 25.5
--- NOTE | 2024-06-05 14:38 | A.OFFPC_ITS ---
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 Allergies No Known Allergies Allergy (Unknown, Verified 06/05/24 15:34) UNKNOWN Medication List - Last Reconciled 06/05/24 by Vinny Miller MD atorvastatin 10 mg PO DAILY cholecalciferol (vitamin D3) (Vitamin D3) 25 mcg PO DAILY lisinopril 10 mg PO DAILY Tobacco use date assessed: 03/10/24 Dental Screening Dental Screen Date: 03/10/24 HPI annual PE - today's appt was changed to HDF 2 HPI Details Patient comes in today for his annual physical examination States that he currently feels okay Still has numbness and palsy of 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 - notes only very minimal improvement over the past few weeks He was seen by Neurology a few weeks ago and was advised to continue with current management with no changes He denies any headaches or dizziness Denies any chest pains, no shortness of breath No nausea / vomiting, no abdominal pain No change in bowel habits noted He denies any acute urinary symptoms He was not able to get his follow-up labs done prior to his appointment today - states that he will try to get them done [facility] Medical History (Updated 06/06/24 @ 19:17 by Vinny Miller MD) Essential hypertension Elevated blood pressure reading without diagnosis of hypertension Nuno's palsy Hyperlipidemia Acute CVA (cerebrovascular accident) Erectile dysfunction Perforated Meckel's diverticulum Vitamin D deficiency Pure hypercholesterolemia Surgical History Hx of left knee surgery (~1997) Status post appendectomy (~07/31/07) Family History Father Hypertension Mother Diverticulitis Brother Diverticulitis Social History Housing: House Alcohol intake: current Alcohol intake frequency: holidays/special occasions only Alcohol type: beer and hard liquor Patient Tobacco Use Status: Never used Tobacco e-Cigarette/Vaping Use: Never Used Second Hand Smoke Exposure: Yes service: No Current occupational status: employed 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 Cognitive needs: No Hearing needs: No Vision needs: No Questionnaire Thrive Questionnaire Date Thrive assessed: 03/10/24 AUDIT C Alcohol Use Questionnaire (AUDIT-C) 1. How often do you have a drink containing alcohol?: Monthly or less 2. How many drinks containing alcohol do you have on a typical day when you are drinking?: 1 or 2 3. How often do you have six or more drinks on one occasion?: Never Total Score: 1 Score Reviewed/Action Taken: Yes MALGORZATA-7 AMB Questionnaire MALGORZATA-7 Date MALGORZATA - 7 assessed: 03/10/24 Source: Developed by Drs. Kimani Solorzano, Molly Mckinney, Albaro Jensen and colleagues, with an educational wilbur from [employer]. Review of Systems Const Denies chills, Denies fatigue, Denies fever(s) and Denies headache(s) Eyes Details: is still unable to completely close his left eye Denies blurry vision, Denies itchy eyes and Denies eye pain ENT Denies dysphagia, Denies dizziness, Denies otalgia, Denies headache(s), Denies neck pain, Denies odynophagia and Denies sore throat Card Denies chest pain, Denies palpitations and Denies dyspnea Resp Denies cough, Denies dyspnea and Denies wheezing GI Denies abdominal pain, Denies constipation, Denies dysphagia, Denies heartburn, Denies diarrhea, Denies nausea, Denies odynophagia and Denies vomiting Denies dysuria, Denies nocturia and Denies urinary frequency Musc Denies abnormal gait, Denies back pain, Denies neck pain and Reports numbness (over the left side of the face) Skin/Breast Denies lesions and Denies rash Neuro Details: (+) numbness / paralysis of the entire left side of the face Denies abnormal gait, Denies dizziness, Denies headache(s), Denies memory loss and Reports numbness (over the left side of the face) Psych Denies memory loss Endo Denies fatigue and Denies palpitations Aller/Immun Denies itchy eyes and Denies wheezing Physical exam (Primary Care) Vital Signs: Last Vital Signs Pulse 56 06/05/24 14:38 BP 168/98 H 06/05/24 14:38 Pulse Ox 98 06/05/24 14:38 Oxygen Delivery Method Room Air 06/05/24 14:38 BMI result Body Mass Index 25.5 Tobacco/Smoking Status: Tobacco use Status Tobacco use date assessed 03/10/24 06/05/24 14:39 Patient Tobacco Use Status Never used Tobacco 06/05/24 14:39 e-Cigarette/Vaping Use Never Used 06/05/24 14:39 Thrive Assessment: Date of Thrive Assessment Date Thrive assessed 03/10/24 06/05/24 14:39 Const General: no acute distress and alert Orientation/consciousness: patient oriented x3 HENMT Head: Yes normocephalic and Yes atraumatic Ears: TM's normal bilaterally and EAC's normal General nose exam: No nasal discharge present Face and sinus: Yes Flattened naso-labial fold present (shallow - on the left side) Mouth: tongue normal (midline) Teeth and gingiva: dentition normal Throat: Yes posterior oropharynx normal, Yes tonsils normal (no TP congestion) and Yes uvula midline Eyes Eyelids: Yes lid lag (left upper eyelid) Conjunctivae: conjunctivae normal Pupils: Equal, round and reactive pupils present EOM: EOMs intact bilaterally Neck Neck: Yes no lymphadenopathy and Yes supple Thyroid: Thyroid normal Resp Auscultation: clear to auscultation bilaterally, no rales and no wheezes Cardio Rate: regular rate Rhythm: regular rhythm Heart sounds: no murmurs GI Palpation (GI): Soft to palpation and nontender Auscultation: normal bowel sounds General: Yes no CVA tenderness Back/Spine/Pelvis Back: no CVA tenderness Thoracic/Lumbar Spine: thoracic and lumbar spine normal to inspection Skin Lesions: no lesions Rashes: no rashes Neuro General: patient oriented x3, gait normal, moves all extremities and no focal motor deficits Cranial nerves: Yes Equal, round and reactive pupils present and Yes Midline tongue present Cognition (Neuro): normal cognition Gait exam (Neuro): Normal gait present Motor exam (neuro): 5/5 motor strength present throughout Extrem General: Yes no clubbing, cyanosis or edema Assessment and Plan Assessment & Plan (1) Annual physical exam: Code(s): Z00.00 - Encounter for general adult medical examination without abnormal findings Plan: Patient is advised to get his previously ordered labs done AJ Will include a few other labs for further evaluation /follow-up (2) Essential hypertension: Code(s): I10 - Essential (primary) hypertension Plan: Reinforced low sodium diet - goal is systolic BP of 120 mm or less Will increase his Lisinopril from 10 mg to 20 mg QD Patient is reminded to continue monitoring his blood pressure regularly (3) 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 Plan: Have reassured him again that this is benign and that all of his symptoms will gradually resolve/clear up over time, which can last from a few weeks to a few months MRI of the brain done in March 2024 revealed no acute infarcts with mild nonspecific T2 signal changes within the supratentorial white matter He was seen by neurology a few weeks ago with no new recommendations given (4) Lagophthalmos of left upper eyelid: Code(s): H02.204 - Unspecified lagophthalmos left upper eyelid Qualifiers: Lagophthalmos type: paralytic Qualified Code(s): H02.234 - Paralytic lagophthalmos left upper eyelid Plan: Reminded patient again to keep his left eye closed, especially when he is sleeping at night, so his eye does not dry up States that this has gotten better as he can now almost close his eyes completely (5) Nodule of parotid gland: Code(s): K11.8 - Other diseases of salivary glands Plan: On the left side - this was seen incidentally on his brain MRI done at the ER a couple of weeks ago Have recommended previously that we will reassess this later on and if his left cervical lymph nodes persist, will consider sending him for a dedicated soft tissue US or parotid gland CT for further evaluation (6) Pure hypercholesterolemia: Code(s): E78.00 - Pure hypercholesterolemia, unspecified Plan: Reinforced low cholesterol diet Continue Atorvastatin 10 mg QD Will have him recheck his labs and fasting lipids in 3 months for follow up (7) Vitamin D deficiency: Code(s): E55.9 - Vitamin D deficiency, unspecified Plan: Conitnue Vitamin D3 1000 units QD Plan Follow up in 3 months Orders: Orders TSH reflex Free T4 06/05/24 E78.00 - Pure hypercholesterolemia, unspecified, Z00.00 - Encounter for general adult medical examination without abnormal findings Vitamin B12 and Folate 06/05/24 E53.8 - Deficiency of other specified B group vitamins, Z00.00 - Encounter for general adult medical examination without abnormal findings Vitamin D 25-OH Total 06/05/24 E55.9 - Vitamin D deficiency, unspecified, Z00.00 - Encounter for general adult medical examination without abnormal findings C Reactive Protein 06/05/24 G51.9 - Disorder of facial nerve, unspecified Comprehensive [place]. Panel Fast 3 Months E78.00 - Pure hypercholesterolemia, unspecified UA CC w/rflx Micro + Cult 06/05/24 R30.0 - Dysuria, Z00.00 - Encounter for general adult medical examination without abnormal findings Erythrocyte Sedimentation Rate 06/05/24 G51.9 - Disorder of facial nerve, unspecified, M79.7 - Fibromyalgia Lipid Panel 3 Months E78.00 - Pure hypercholesterolemia, unspecified Medications: New lisinopril 20 mg PO DAILY 90 days 90 tabs 1RF Coding Level of Care Code Est Pt Prev Care 40-64y(68063) Diagnoses Annual physical exam Z00.00 Essential hypertension I10 Nuno's palsy G51.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
== END 2024-06-05 15:50 | disposition home or self-care (01) ==
PROVIDERS: PCP Internal Medicine; Visit Provider Internal Medicine
DX: Z00.00 Encounter for general adult medical examination without abnormal findings (principal); I10 Essential (primary) hypertension; G51.0 Bell's palsy; H02.23 Paralytic lagophthalmos; K11.8 Other diseases of salivary glands; E78.00 Pure hypercholesterolemia, unspecified; E55.9 Vitamin D deficiency, unspecified
CPT/HCPCS: 99396

== ENCOUNTER 2024-06-08 08:36 | Outpatient (REF) | payer OTHER, SELFPAY ==
[2024-06-08 08:53] LABS: MANUAL DIFF FLAG NO
[2024-06-08 09:33] LABS: Basophils Absolute Auto 0.1 X10*3/uL (0.0-0.2); Basophils Percent Auto 0.7 % (0-2); Eosinophils Absolute Auto 0.1 X10*3/uL (0.0-0.4); Eosinophils Percent Auto 1.6 % (0-4); Hematocrit 41.3 % (42.0-52.0); Imm Gran Abs Auto 0.03 X10*3/uL (0.00-0.03); Imm Gran Pct Auto 0.3 % (0.0-0.4); Lymphocytes Absolute Auto 3.2 X10*3/uL (1.2-4.9); Mean Corpuscular HGB Conc 33.9 g/dl (31.0-36.0); Mean Corpuscular Hemoglobin 28.3 pg (27.0-33.0); Mean Corpuscular Volume 83.4 fL (80.0-98.0); Mean Platelet Volume 10.9 fL (9.4-12.4); Monocytes Absolute Auto 0.6 X10*3/uL (0.1-1.2); Monocytes Percent Auto 7.2 % (2-11); Neutrophils Absolute Auto 4.6 x10*3/uL (2.0-8.3); Neutrophils Percent Auto 53.2 % (45-73); Platelet Count 322 X10*3/uL (160-400); Red Blood Count 4.95 X10*6/uL (4.60-5.80); Red Cell Distribution Width 14.9 % (11.0-16.0); White Blood Count 8.7 X10*3/uL (4.8-10.8)
[2024-06-08 10:00] LABS: Alanine Aminotransferase 34 U/L (0-40); Albumin Level 4.2 g/dL (3.5-5.0); Alkaline Phosphatase 104 U/L (39-117); Anion Gap 13 (12-20); Aspartate Amino Transferase 22 U/L (5-37); Blood Urea Nitrogen 10 mg/dL (9-16); C Reactive Protein 0.28 mg/dL (< or = 0.50); Calcium 8.9 mg/dL (8.4-10.2); Carbon Dioxide 24 mmol/L (22-29); Chloride 107 mmol/L (96-108); Cholesterol 192 mg/dL (<200); Estimated Glomerular Filt Rate > 60; Glucose Fasting 101 mg/dL (60-99); HDL Cholesterol 36 mg/dL (>40); Potassium 3.3 mmol/L (3.3-5.1); Sodium 141 mmol/L (135-145); Triglycerides 423 mg/dL (<150)
[2024-06-08 10:09] LABS: Erythrocyte Sedimentation Rate 4 MM/HR (0-15)
[2024-06-08 10:18] LABS: TSH reflex Free T4 2.38 uIU/mL (0.32-4.0); Vitamin D 25-OH Total 46.8 ng/mL (>30)
[2024-06-08 10:25] LABS: Appearance Urine Clear; Color Urine Yellow; Glucose Urine UA Negative (Negative); Leukocyte Esterase Urine Negative (Negative); Nitrite Urine Negative (Negative); PH 5.5 (5.0-9.0); Urine Blood Negative (Negative); Urine Ketones Negative (Negative); Urine Protein Negative (Neg-Trace)
[2024-06-08 11:18] LABS: Folate 5.2 ng/mL (> or = 4.0); Vitamin B12 234 pg/mL (200-900)
== END 2024-06-08 08:37 | disposition home or self-care (01) ==
LOC: HO.LAB 08:36
PROVIDERS: PCP Internal Medicine; Visit Provider Internal Medicine
DX: Z00.00 Encounter for general adult medical examination without abnormal findings (principal); E78.00 Pure hypercholesterolemia, unspecified; E55.9 Vitamin D deficiency, unspecified; G51.9 Disorder of facial nerve, unspecified; M79.7 Fibromyalgia; D64.9 Anemia, unspecified; E53.8 Deficiency of other specified B group vitamins; R30.0 Dysuria
CPT/HCPCS: 36415; 80053; 80061; 81003; 82306; 82607; 82746; 84443; 85025; 85652; 86140

== ENCOUNTER → 2024-07-09 07:39 | Outpatient (BNVA) | payer SELFPAY | PROVIDERS: PCP Internal Medicine; Visit Provider Physician Assistant Medical | DX: Z02.79 Encounter for issue of other medical certificate (principal) ==

== ENCOUNTER 2024-09-23 14:17 | Outpatient (AMB) | payer OTHER, SELFPAY ==
--- NOTE | 2024-09-23 14:28 | A.OFFPC_ITS ---
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 Accompanied by: Self / Same As Patient Allergies No Known Allergies Allergy (Unknown, Verified 09/23/24 15:17) UNKNOWN Medication List - Last Reconciled 09/23/24 by Vinny Miller MD atorvastatin 10 mg PO DAILY cholecalciferol (vitamin D3) (Vitamin D3) 25 mcg PO DAILY lisinopril 30 mg PO DAILY 90 days Tobacco use date assessed: 09/23/24 Dental Screening Dental Screen Date: 09/23/24 Did you have a dental visit in the last 12 months?: No Did you have a dental problem in the last 6 months where you did not have access to dental care?: No Was dental information given to patient?: Patient has dentist HPI Hypertension HPI Details Patient comes in today for his follow up visit States that he feels okay and that his left facial palsy and other related symptoms have almost all cleared up completely and he was presently only has mild residual paralysis on the left side of his face and he is able to completely close his left eye now He denies any headaches or dizziness Denies any chest pains, no shortness of breath No nausea/vomiting, no abdominal pain No change in bowel habits noted States that he has been taking his lisinopril 20 mg daily but has noticed that his blood pressure readings are still very high often ahen he checks it He had his most recent follow up labs done back in June 2024 - to discuss his results [facility] Medical History (Updated 09/27/24 @ 12:29 by Vinny Miller MD) Overweight (BMI 25.0-29.9) Essential hypertension Hyperlipidemia Pure hypercholesterolemia Nuno's palsy (~03/2024) Erectile dysfunction Perforated Meckel's diverticulum Vitamin D deficiency Surgical History Hx of left knee surgery (~1997) Status post appendectomy (~07/31/07) Family History Father Hypertension Mother Diverticulitis Brother Diverticulitis Social History Housing: House Alcohol intake: current Alcohol intake frequency: holidays/special occasions only Alcohol type: beer and hard liquor Patient Tobacco Use Status: Never used Tobacco e-Cigarette/Vaping Use: Never Used Second Hand Smoke Exposure: Yes service: No Current occupational status: employed 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 1. Little interest or pleasure in doing things: not at all 2. Feeling down, depressed, or hopeless: not at all 3. Trouble falling or staying asleep, or sleeping too much: not at all 4. Feeling tired or having little energy: not at all 5. Poor appetite or overeating: not at all 6. Feeling bad about yourself - or that you are a failure or have let yourself or your family down: not at all 7. Trouble concentrating on things, such as reading the newspaper or watching television: not at all 8. Moving or speaking so slowly that other people could have noticed. Or the opposite - being so fidgety or restless that you have been moving around a lot more than usual: not at all 9. Thoughts that you would be better off or of hurting yourself in some way: not at all Total score: 0 Depression Screening Interpretation: Negative Depression Screening Done: Yes 68758 - PHQ-9 Billing: Yes Source: Developed by Drs. Kimani Solorzano, Molly Mckinney, Albaro Jensen and colleagues, with an educational wilbur from [employer]. Thrive Questionnaire Date Thrive assessed: 09/23/24 I am a: Patient What is your living situation today?: I have a steady place to live Within the past 12 months, did the food you bought not last and you didn't have the money to get more?: Never true Within the past 12 months, did you worry whether your food would run out before you got money to buy more?: Never true Do you have trouble paying for medicines?: No Do you have trouble getting transportation to medical appointments?: No Do you have trouble paying your heating and electricity bill?: No Do you have trouble taking care of your child, family member or friend?: No Do you have trouble with day-to-day activities such as bathing, preparing meals, shopping, managing finances, etc.?: No Are you currently unemployed and looking for a job?: No Are you interested in more education?: No Please select the resources that you would like help with: None Currently or been in a relationship where the following occur: No concerns reported THRIVE Score: 0 AUDIT C Alcohol Use Questionnaire (AUDIT-C) 1. How often do you have a drink containing alcohol?: Monthly or less 2. How many drinks containing alcohol do you have on a typical day when you are drinking?: 1 or 2 3. How often do you have six or more drinks on one occasion?: Never Total Score: 1 Score Reviewed/Action Taken: Yes MALGORZATA-7 AMB Questionnaire MALGORZATA-7 Date MALGORZATA - 7 assessed: 09/23/24 Feeling nervous, anxious, or on edge: 0 = Not at all Not being able to stop or control worryin = Not at all Worrying too much about different things: 0 = Not at all Trouble relaxin = Not at all Being so restless that it is hard to sit still: 0 = Not at all Becoming easily annoyed or irritable: 0 = Not at all Feeling afraid as if something awful might happen: 0 = Not at all Total MALGORZATA-7 score (0-4 normal; 5-9 mild; 10-14 moderate; 15-21 severe): 0 Source: Developed by Drs. Kimani Solorzano, Molly Mckinney, Albaro Jensen and colleagues, with an educational wilbur from [employer]. Review of Systems Const Denies chills, Denies fatigue, Denies fever(s) and Denies headache(s) ENT Denies dysphagia, Denies dizziness, Denies otalgia, Denies headache(s), Denies neck pain, Denies odynophagia and Denies sore throat Card Denies chest pain, Denies palpitations and Denies dyspnea Resp Denies chest congestion, Denies cough and Denies dyspnea GI Denies abdominal pain, Denies constipation, Denies dysphagia, Denies heartburn, Denies diarrhea, Denies nausea, Denies odynophagia and Denies vomiting Denies dysuria, Denies nocturia and Denies urinary frequency Musc Denies back pain, Denies neck pain and Reports numbness (minimal, over the left side of the face) Skin/Breast Denies rash Neuro Details: (+) minimal residual numbness / paralysis of the entire left side of the face Denies dizziness, Denies headache(s) and Reports numbness (minimal, over the left side of the face) Endo Denies fatigue and Denies palpitations Physical exam (Primary Care) Vital Signs: Last Vital Signs Pulse 81 09/23/24 14:29 BP 140/98 H 09/23/24 14:29 Pulse Ox 97 09/23/24 14:29 Oxygen Delivery Method Room Air 09/23/24 14:29 BMI result Body Mass Index 27.0 Tobacco/Smoking Status: Tobacco use Status Tobacco use date assessed 09/23/24 09/23/24 14:30 Patient Tobacco Use Status Never used Tobacco 09/23/24 14:30 e-Cigarette/Vaping Use Never Used 09/23/24 14:30 PHQ-9: PHQ-9 Score PHQ-9: Total score 0 09/23/24 15:10 Depression Screening Interpretation: Negative Thrive Assessment: Date of Thrive Assessment Date Thrive assessed 09/23/24 09/23/24 14:30 Currently or been in a relationship where the following occur: No concerns reported Const General: no acute distress and alert HENMT Ears: TM's normal bilaterally and EAC's normal Face and sinus: Yes Flattened naso-labial fold present (mild - on the left side) Throat: Yes posterior oropharynx normal and Yes tonsils normal (no TP congestion) Eyes Eyelids: Yes eyelids normal and No lid lag Neck Neck: Yes no lymphadenopathy and Yes supple Thyroid: Thyroid normal Resp Auscultation: clear to auscultation bilaterally, no rales and no wheezes Cardio Rate: regular rate Rhythm: regular rhythm Heart sounds: no murmurs GI Palpation (GI): Soft to palpation and nontender Auscultation: normal bowel sounds General: Yes no CVA tenderness Back/Spine/Pelvis Back: no CVA tenderness Thoracic/Lumbar Spine: No lumbar spinal tenderness Skin Rashes: no rashes Extrem General: Yes no clubbing, cyanosis or edema Office Procedures Flu Questionnaire Does the patient have a severe egg allergy?: No Immunizations Fluarix Triv [id number] (PF) 45 mcg (15 mcg x 3)/0.5 mL IM syringe Performing Provider: Vinny Miller MD [facility] Documented (not given) by: DAINA Larson on 09/23/24 14:46 Reason Not Given: Received Previously Results Reviewed Results Reviewed: Laboratory Tests 03/02/24 03/03/24 06/08/24 14:01 05:45 08:46 WBC 11.6 H Hgb 14.5 Hct 42.6 Plt Count 338 ESR Sodium 137 Potassium 3.4 Creatinine 0.80 Estimated GFR > 60 Random Glucose 155 H Fasting Glucose Hemoglobin A1c % 5.3 Calcium 8.8 AST 30 ALT 41 H Triglycerides Cholesterol LDL Cholesterol, Calc HDL Cholesterol Vitamin B12 25-OH Vitamin D Total TSH Ur Specific [place] 1.020 Urine Protein Negative Urine Glucose (UA) Negative Urine Blood Negative Urine Nitrite Negative Ur Leukocyte Esterase Negative 06/08/24 08:51 WBC 8.7 Hgb 14.0 Hct 41.3 L Plt Count 322 ESR 4 Sodium 141 Potassium 3.3 Creatinine 0.86 Estimated GFR > 60 Random Glucose Fasting Glucose 101 H Hemoglobin A1c % Calcium 8.9 AST 22 ALT 34 Triglycerides 423 H Cholesterol 192 LDL Cholesterol, Calc TNP HDL Cholesterol 36 L Vitamin B12 234 25-OH Vitamin D Total 46.8 TSH 2.38 Ur Specific [place] Urine Protein Urine Glucose (UA) Urine Blood Urine Nitrite Ur Leukocyte Esterase Coding Level of Care Code Est Pt Level 4 (25919) Complex EM visit Add On G2211 Diagnoses Essential hypertension I10 Nuno's palsy G51.0 Nodule of parotid gland K11.8 Pure hypercholesterolemia E78.00 Vitamin D deficiency E55.9 Overweight (BMI 25.0-29.9) E66.3 Assessment & Plan Assessment & Plan (1) Essential hypertension: Code(s): I10 - Essential (primary) hypertension Category: Medical Plan: Reinforced low sodium diet - goal is systolic BP of 120 mm or less Will now increase his Lisinopril from 20 mg to 30 mg QD Patient is reminded to continue monitoring his blood pressure regularly (2) Nuno's palsy: Onset Date: ~03/2024 Code(s): G51.0 - Nuno's palsy Category: Medical Plan: Resolving - patient presently has very minimal residual left facial palsy (3) Nodule of parotid gland: Code(s): K11.8 - Other diseases of salivary glands Category: Medical Plan: On the left side - this was seen incidentally on his brain MRI done at the ER a couple of months ago Have previously recommended that we reassess this later on and if his left cervical lymph nodes persist, will then consider sending him for a dedicated soft tissue US or parotid gland CT for further evaluation (4) Pure hypercholesterolemia: Code(s): E78.00 - Pure hypercholesterolemia, unspecified Category: Medical Plan: Results of his labs done back in June 2024 reviewed and discussed with patient Reinforced low cholesterol diet Continue Atorvastatin 10 mg QD Will have him recheck his labs and fasting lipids in 3 months for follow up (5) Vitamin D deficiency: Code(s): E55.9 - Vitamin D deficiency, unspecified Category: Medical Plan: Conitnue Vitamin D3 1000 units QD (6) Overweight (BMI 25.0-29.9): Code(s): E66.3 - Overweight Category: Medical Plan: Reinforced diet/exercise as tolerated/lose weight Plan Follow up in 3 months Orders: Orders Influenza [id number] Immunization 09/23/24 Z23 - Encounter for immunization Complete Blood Count Auto Diff 3 Months D64.9 - Anemia, unspecified Comprehensive [place]. Panel Fast 3 Months E78.00 - Pure hypercholesterolemia, unspecified Lipid Panel 3 Months E78.00 - Pure hypercholesterolemia, unspecified Medications: Changed From lisinopril 20 mg PO DAILY 90 days 90 tabs 1RF To lisinopril 30 mg PO DAILY 90 days 90 tabs 1RF
[2024-09-23 14:29] VITALS: BP 140/98; PULSE 81; O2SAT 97; BMI 27.0
== END 2024-09-23 15:22 | disposition home or self-care (01) ==
PROVIDERS: PCP Internal Medicine; Visit Provider Internal Medicine
DX: I10 Essential (primary) hypertension (principal); G51.0 Bell's palsy; K11.8 Other diseases of salivary glands; E78.00 Pure hypercholesterolemia, unspecified; E55.9 Vitamin D deficiency, unspecified; E66.3 Overweight

== ENCOUNTER → 2024-09-23 14:17 | Outpatient (BNVA) | payer OTHER, SELFPAY | PROVIDERS: PCP Internal Medicine; Visit Provider Internal Medicine | DX: I10 Essential (primary) hypertension (principal); G51.0 Bell's palsy; K11.8 Other diseases of salivary glands; E78.00 Pure hypercholesterolemia, unspecified; E55.9 Vitamin D deficiency, unspecified; E66.3 Overweight; Z68.27 Body mass index [BMI] 27.0-27.9, adult; Z79.899 Other long term (current) drug therapy | CPT/HCPCS: 90471; 96127 ==

== ENCOUNTER 2025-01-19 09:11 | Outpatient (AMB) | payer OTHER, SELFPAY ==
[2025-01-19 09:19] VITALS: BP 128/90; PULSE 74; O2SAT 99; BMI 27.6
--- NOTE | 2025-01-19 09:19 | A.OFFPC_ITS ---
Vital Signs 01/19/25 09:19 Height 5 ft 7 in Weight 176 lb 6 oz BMI 27.6 BP 128/90 H Blood Pressure Location Lt brachial Position Sitting Pulse 74 Pulse Source Pulse Oximeter Pulse Oximetry (%) 99 Oxygen Delivery Method Room Air Intake Visit Reasons: Follow Up [facility] Recreation Required: No Accompanied by: Self / Same As Patient Allergies No Known Allergies Allergy (Unknown, Verified 01/19/25 09:20) UNKNOWN Tobacco use date assessed: 01/19/25 Dental Screening Dental Screen Date: 01/19/25 Did you have a dental visit in the last 12 months?: No Did you have a dental problem in the last 6 months where you did not have access to dental care?: No Was dental information given to patient?: No HPI Follow Up HPI Details Patient comes in today for his follow up visit States that he feels okay He denies any headaches or dizziness Denies any chest pains, no SOB No nausea/vomiting, no abdominal pain No change in bowel habits noted He was not able to get his follow up labs done prior to his appointment today [facility] Medical History Overweight (BMI 25.0-29.9) Essential hypertension Hyperlipidemia Pure hypercholesterolemia Nuno's palsy (~03/2024) Erectile dysfunction Perforated Meckel's diverticulum Vitamin D deficiency Surgical History Hx of left knee surgery (~1997) Status post appendectomy (~07/31/07) Family History Father Hypertension Mother Diverticulitis Brother Diverticulitis Social History Housing: House Alcohol intake: current Alcohol intake frequency: holidays/special occasions only Alcohol type: beer and hard liquor Patient Tobacco Use Status: Never used Tobacco e-Cigarette/Vaping Use: Never Used Second Hand Smoke Exposure: Yes service: No Current occupational status: employed 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 1. Little interest or pleasure in doing things: not at all 2. Feeling down, depressed, or hopeless: not at all 3. Trouble falling or staying asleep, or sleeping too much: not at all 4. Feeling tired or having little energy: not at all 5. Poor appetite or overeating: not at all 6. Feeling bad about yourself - or that you are a failure or have let yourself or your family down: not at all 7. Trouble concentrating on things, such as reading the newspaper or watching television: not at all 8. Moving or speaking so slowly that other people could have noticed. Or the opposite - being so fidgety or restless that you have been moving around a lot more than usual: not at all 9. Thoughts that you would be better off or of hurting yourself in some way: not at all Total score: 0 Depression Screening Interpretation: Negative Depression Screening Done: Yes 85289 - PHQ-9 Billing: Yes Source: Developed by Drs. Kimani Solorzano, Molly Mckinney, Albaro Jensen and colleagues, with an educational wilbur from [employer]. Thrive Questionnaire Date Thrive assessed: 01/19/25 I am a: Patient What is your living situation today?: I have a steady place to live Within the past 12 months, did the food you bought not last and you didn't have the money to get more?: Never true Within the past 12 months, did you worry whether your food would run out before you got money to buy more?: Never true Do you have trouble paying for medicines?: No Do you have trouble getting transportation to medical appointments?: No Do you have trouble paying your heating and electricity bill?: No Do you have trouble taking care of your child, family member or friend?: No Do you have trouble with day-to-day activities such as bathing, preparing meals, shopping, managing finances, etc.?: No Are you currently unemployed and looking for a job?: No Are you interested in more education?: No Please select the resources that you would like help with: None Currently or been in a relationship where the following occur: No concerns reported THRIVE Score: 0 AUDIT C Alcohol Use Questionnaire (AUDIT-C) 1. How often do you have a drink containing alcohol?: Monthly or less 2. How many drinks containing alcohol do you have on a typical day when you are drinking?: 1 or 2 3. How often do you have six or more drinks on one occasion?: Never Total Score: 1 Score Reviewed/Action Taken: Yes MALGORZATA-7 AMB Questionnaire MALGORZATA-7 Date MALGORZATA - 7 assessed: 01/19/25 Feeling nervous, anxious, or on edge: 0 = Not at all Not being able to stop or control worryin = Not at all Worrying too much about different things: 0 = Not at all Trouble relaxin = Not at all Being so restless that it is hard to sit still: 0 = Not at all Becoming easily annoyed or irritable: 0 = Not at all Feeling afraid as if something awful might happen: 0 = Not at all Total MALGORZATA-7 score (0-4 normal; 5-9 mild; 10-14 moderate; 15-21 severe): 0 Source: Developed by Drs. Kimani Solorzano, Molly Mckinney, Albaro Jensen and colleagues, with an educational wilbur from [employer]. Review of Systems Const Denies chills, Denies fatigue, Denies fever(s) and Denies headache(s) ENT Denies dysphagia, Denies dizziness, Denies otalgia, Denies headache(s), Denies neck pain, Denies odynophagia and Denies sore throat Card Denies chest pain, Denies palpitations and Denies dyspnea Resp Denies chest congestion, Denies cough and Denies dyspnea GI Denies abdominal pain, Denies constipation, Denies dysphagia, Denies heartburn, Denies diarrhea, Denies nausea, Denies odynophagia and Denies vomiting Denies difficulty urinating, Denies dysuria, Denies nocturia and Denies urinary frequency Musc Denies back pain and Denies neck pain Skin/Breast Details: (+) residual puffiness and minimal swelling over the left cheek area from he had Nuno's palsy last year Denies rash Neuro Denies dizziness and Denies headache(s) Endo Denies fatigue and Denies palpitations Physical exam (Primary Care) Vital Signs: Last Vital Signs Pulse 74 01/19/25 09:19 BP 128/90 H 01/19/25 09:19 Pulse Ox 99 01/19/25 09:19 Oxygen Delivery Method Room Air 01/19/25 09:19 BMI result Body Mass Index 27.6 Tobacco/Smoking Status: Tobacco use Status Tobacco use date assessed 01/19/25 01/19/25 09:24 Patient Tobacco Use Status Never used Tobacco 01/19/25 09:24 e-Cigarette/Vaping Use Never Used 01/19/25 09:24 PHQ-9: PHQ-9 Score PHQ-9: Total score 0 01/19/25 09:24 Depression Screening Interpretation: Negative Thrive Assessment: Date of Thrive Assessment Date Thrive assessed 01/19/25 01/19/25 09:24 Currently or been in a relationship where the following occur: No concerns reported Const General: no acute distress and alert HENMT Ears: TM's normal bilaterally and EAC's normal Face and sinus: Yes other ((+) mild swelling/ puffiness over the left cheek) Throat: Yes posterior oropharynx normal and Yes tonsils normal (no TP congestion) Eyes Periorbital: periorbital findings normal Eyelids: Yes eyelids normal and No lid lag Neck Neck: Yes supple and No lymphadenopathy Thyroid: Thyroid normal Resp Auscultation: clear to auscultation bilaterally, no rales and no wheezes Cardio Rate: regular rate Rhythm: regular rhythm Heart sounds: no murmurs GI Palpation (GI): Soft to palpation and nontender Auscultation: normal bowel sounds General: Yes no CVA tenderness Back/Spine/Pelvis Back: no CVA tenderness Thoracic/Lumbar Spine: No lumbar spinal tenderness Skin Rashes: no rashes Extrem General: Yes no clubbing, cyanosis or edema Coding Level of Care Code Est Pt Level 4 (63084) Diagnoses Essential hypertension I10 Pure hypercholesterolemia E78.00 Vitamin D deficiency E55.9 Overweight (BMI 25.0-29.9) E66.3 Additional Codes PHQ-9 - 14347 - PHQ-9 Billing: Yes ([id number]) Assessment & Plan Assessment & Plan (1) Essential hypertension: Code(s): I10 - Essential (primary) hypertension Category: Medical Plan: Reinforced low sodium diet - goal is systolic BP of 120 mm or less Continue Lisinopril 30 mg QD Patient is reminded to continue monitoring his blood pressure regularly (2) Pure hypercholesterolemia: Code(s): E78.00 - Pure hypercholesterolemia, unspecified Category: Medical Plan: He was not able to get his follow up labs done prior to his appointment today - states that he will try to get them done tomorrow morning Reinforced low cholesterol diet Continue Atorvastatin 10 mg QD Will have him recheck his labs and fasting lipids in 4 months for follow up (3) Vitamin D deficiency: Code(s): E55.9 - Vitamin D deficiency, unspecified Category: Medical Plan: Continue Vitamin D3 1000 units QD (4) Overweight (BMI 25.0-29.9): Code(s): E66.3 - Overweight Category: Medical Plan: Reinforced diet/exercise as tolerated/lose weight Plan To return in June 2025 for his next annual physical examination Orders: Orders Complete Blood Count Auto Diff 06/01/25 D64.9 - Anemia, unspecified, Z00.00 - Encounter for general adult medical examination without abnormal findings UA CC w/rflx Micro + Cult 06/01/25 R30.0 - Dysuria, Z00.00 - Encounter for general adult medical examination without abnormal findings Prostate Specific Antigen Scr 06/01/25 Z00.00 - Encounter for general adult medical examination without abnormal findings Comprehensive [place]. Panel Fast 06/01/25 E78.00 - Pure hypercholesterolemia, unspecified, Z00.00 - Encounter for general adult medical examination without abnormal findings Lipid Panel 06/01/25 E78.00 - Pure hypercholesterolemia, unspecified, Z00.00 - Encounter for general adult medical examination without abnormal findings TSH reflex Free T4 06/01/25 E78.00 - Pure hypercholesterolemia, unspecified, Z00.00 - Encounter for general adult medical examination without abnormal findings Vitamin D 25-OH Total 06/01/25 E55.9 - Vitamin D deficiency, unspecified, Z00.00 - Encounter for general adult medical examination without abnormal findings Hemoglobin A1c 06/01/25 E11.9 - Type 2 diabetes mellitus without complications, Z00.00 - Encounter for general adult medical examination without abnormal findings
== END 2025-01-19 10:14 | disposition home or self-care (01) ==
PROVIDERS: PCP Internal Medicine; Visit Provider Internal Medicine
DX: I10 Essential (primary) hypertension (principal); E78.00 Pure hypercholesterolemia, unspecified; E55.9 Vitamin D deficiency, unspecified; E66.3 Overweight

== ENCOUNTER → 2025-01-19 09:11 | Outpatient (BNVA) | payer OTHER, SELFPAY | PROVIDERS: PCP Internal Medicine; Visit Provider Internal Medicine | DX: I10 Essential (primary) hypertension (principal); E78.00 Pure hypercholesterolemia, unspecified; E55.9 Vitamin D deficiency, unspecified; E66.3 Overweight; Z68.27 Body mass index [BMI] 27.0-27.9, adult; Z79.899 Other long term (current) drug therapy | CPT/HCPCS: 96127 ==

== ENCOUNTER 2025-01-20 10:47 | Outpatient (REF) | payer OTHER, SELFPAY ==
[2025-01-20 10:57] LABS: MANUAL DIFF FLAG NO
[2025-01-20 11:07] LABS: Basophils Absolute Auto 0.1 X10*3/uL (0.0-0.2); Basophils Percent Auto 0.5 % (0-2); Eosinophils Absolute Auto 0.2 X10*3/uL (0.0-0.4); Eosinophils Percent Auto 1.6 % (0-4); Hematocrit 40.7 % (42.0-52.0); Hemoglobin 13.6 g/dl (14.0-18.0); Imm Gran Abs Auto 0.03 X10*3/uL (0.00-0.03); Imm Gran Pct Auto 0.3 % (0.0-0.4); Lymphocytes Absolute Auto 3.3 X10*3/uL (1.2-4.9); Lymphocytes Percent Auto 35.7 % (20-40); Mean Corpuscular HGB Conc 33.4 g/dl (31.0-36.0); Mean Corpuscular Hemoglobin 27.8 pg (27.0-33.0); Mean Corpuscular Volume 83.1 fL (80.0-98.0); Mean Platelet Volume 9.9 fL (9.4-12.4); Monocytes Absolute Auto 0.7 X10*3/uL (0.1-1.2); Monocytes Percent Auto 7.4 % (2-11); Neutrophils Percent Auto 54.5 % (45-73); Platelet Count 303 X10*3/uL (160-400); Red Cell Distribution Width 14.9 % (11.0-16.0); White Blood Count 9.3 X10*3/uL (4.8-10.8)
[2025-01-20 11:37] LABS: Alanine Aminotransferase 38 U/L (0-40); Albumin Level 4.1 g/dL (3.5-5.0); Alkaline Phosphatase 92 U/L (39-117); Anion Gap 11 (12-20); Aspartate Amino Transferase 33 U/L (5-37); Bilirubin Total 1.1 mg/dL (0.0-1.0); Blood Urea Nitrogen 10 mg/dL (9-16); Calcium 8.5 mg/dL (8.4-10.2); Carbon Dioxide 23 mmol/L (22-29); Chloride 108 mmol/L (96-108); Cholesterol 215 mg/dL (<200); Estimated Glomerular Filt Rate > 60; Glucose Fasting 99 mg/dL (60-99); HDL Cholesterol 34 mg/dL (>40); LDL Cholesterol Calculated 106 mg/dL (<100); Potassium 3.4 mmol/L (3.3-5.1); Sodium 139 mmol/L (135-145); Triglycerides 378 mg/dL (<150)
== END 2025-01-20 10:48 | disposition home or self-care (01) ==
LOC: HO.LAB 10:47
PROVIDERS: PCP Internal Medicine; Visit Provider Internal Medicine
DX: Z00.00 Encounter for general adult medical examination without abnormal findings (principal); D64.9 Anemia, unspecified; E78.00 Pure hypercholesterolemia, unspecified
CPT/HCPCS: 36415; 80053; 80061; 85025

== ENCOUNTER → 2025-07-28 15:19 | Outpatient (BNVA) | payer SELFPAY | PROVIDERS: PCP Internal Medicine; Visit Provider Physician Assistant | DX: Z02.79 Encounter for issue of other medical certificate (principal) ==

== ENCOUNTER 2025-08-18 09:24 | Outpatient (AMB) | payer OTHER, SELFPAY ==
--- NOTE | 2025-08-18 09:33 | A.OFFVIS_ITS ---
Vital Signs 08/18/25 09:34 Height 5 ft 7 in Intake Visit Reasons: 6 month [place] palsy Allergies No Known Allergies Allergy (Unknown, Verified 08/18/25 09:42) UNKNOWN Medication List - Last Reconciled 08/18/25 by Joan Collins CNP atorvastatin 10 mg PO DAILY cholecalciferol (vitamin D3) (Vitamin D3) 25 mcg PO DAILY lisinopril 30 mg PO DAILY 90 days HPI Comments Details: He was doing okay. Had some improvement in left peripheral facial paralysis, was about the same. No issues closing?left eye or keeping eye moist, watery at times. Upper eyelid does not feels heavy anymore. Left side of face feels stiff at times. No difficulty eating, drinking, or swallowing.?Has some work-related stress, works second shift at [employer] in [place]. Blood pressure has been better. On 03/02/2024, he developed left facial paralysis and pain behind the left ear. He was given antiviral agents and steroids for about a week. He was also found to have uncontrolled hypertension with a systolic blood pressure of 230. His PCP started him on lisinopril 2.5mg/day. He also takes atorvastatin for hyperlipidemia. [facility] Medical History Overweight (BMI 25.0-29.9) Essential hypertension Hyperlipidemia Pure hypercholesterolemia Nuno's palsy (~03/2024) Erectile dysfunction Perforated Meckel's diverticulum Vitamin D deficiency Surgical History Hx of left knee surgery (~1997) Status post appendectomy (~07/31/07) Family History Father Hypertension Mother Diverticulitis Brother Diverticulitis Social History Housing: House Alcohol intake: current Alcohol intake frequency: holidays/special occasions only Alcohol type: beer and hard liquor Patient Tobacco Use Status: Never used Tobacco e-Cigarette/Vaping Use: Never Used Second Hand Smoke Exposure: Yes service: No Current occupational status: employed 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 Cognitive needs: No Hearing needs: No Vision needs: No Review of Systems Const Denies chills, Denies daytime sleepiness, Denies difficulty sleeping, Denies fatigue, Denies fever(s), Denies frequent falls, Denies headache(s), Denies increased appetite, Denies poor appetite, Denies snoring, Denies weakness, Denies weight gain and Denies weight loss Eyes Denies loss of vision ENT Denies vertigo, Denies dizziness, Denies headache(s) and Denies neck pain Card Denies chest pain at rest, Denies chest pain with activity, Denies syncope, Denies leg edema, Denies palpitations, Denies dyspnea and Denies dyspnea on exertion Resp Denies cough, Denies dyspnea, Denies dyspnea on exertion and Denies snoring GI Denies abdominal pain, Denies constipation, Denies heartburn, Denies diarrhea and Denies nausea Denies urinary frequency, Denies urinary incontinence and Denies urinary urgency Musc Denies abnormal gait, Denies back pain, Denies myalgias, Denies arthralgias, Denies neck pain, Denies numbness and Denies tingling Neuro Denies abnormal gait, Denies vertigo, Denies dizziness, Denies syncope, Denies frequent falls, Denies headache(s), Denies lack of coordination, Denies loss of vision, Denies memory loss, Denies numbness, Denies Other visual disturbances, Denies restless legs, Denies seizure-like activity, Denies tingling, Denies paresthesias, Denies tremor(s) and Denies weakness Psych Denies anxiety, Denies depression, Denies auditory hallucinations, Denies memory loss and Denies visual hallucinations Endo Denies fatigue and Denies palpitations Physical Exam Const Other: General Appearance:? normal, in no acute distress. Heart:? S1, S2 normal, no murmurs. Lungs:? clear anteriorly and posteriorly. Musculoskeletal:? normal. Extremities:? no edema. Psych:? alert, oriented, cognitive function intact, cooperative with exam. Neuro Other: Abnormal Neurological Findings:?Mild L facial weakness. Mental Status: alert and oriented X 3. Normal attention, orientation, memory, and affect. Cranial Nerves: Pupils are equal, round, and reactive to light. External ocular muscles are intact. Visual cortez are full, no ptosis. Face is asymmetrical, with incomplete peripheral left facial paralysis and weakness. Facial sensations are normal. Tongue protrudes in midline. Palate elevates symmetrically. Shoulder shrugging is normal Motor Examination: Normal muscle tone, bulk and strength. No atrophy or fasciculations. No drift of the extended upper extremities. DTR 2+. Plantars are flexor. Sensory Exam: Normal light touch, temperature, pinprick, vibration, and joint-position sensations. Rhomberg sign is absent. Coordination: No ataxia. No titubation. Gait Exam: Within normal limits. Cerebellar Signs: [id number] and [id number] is normal. No dysdiadochokinesia. Extrapyramidal System: No tremor, rigidity with normal facial expressions. No bradykinesia. No bradyphrenia. Normal arm swing and posture. No propulsion or retropulsion. Speech: Normal. Results Reviewed Results Reviewed: MRI 03/05/24 negtive. Minor microvacsular changes Assessment & Plan Assessment & Plan (1) Nuno's palsy: Onset Date: ~03/2024 Code(s): G51.0 - Nuno's palsy Category: Medical Plan: Continue current treatment. Coding Level of Care Code Est Pt Level 3 (68356) Diagnoses Nuno's palsy G51.0
== END 2025-08-18 09:52 | disposition home or self-care (01) ==
LOC: HO.HSM 09:25
PROVIDERS: PCP Internal Medicine; Referring Provider Internal Medicine; Visit Provider Registered Nurse
DX: G51.0 Bell's palsy (principal)
CPT/HCPCS: 99213

== ENCOUNTER 2025-11-10 16:39 | Outpatient (AMB) | payer OTHER, SELFPAY ==
[2025-11-10 16:42] VITALS: BP 160/100; PULSE 86; O2SAT 99; BMI 27.6
--- NOTE | 2025-11-10 16:42 | MHC.PC.OV ---
Vital Signs 11/10/25 16:42 11/10/25 16:57 Height 5 ft 7 in Weight 176 lb BMI 27.6 BP 160/100 H 160/98 H Blood Pressure Location Lt brachial Lt brachial Position Sitting Sitting Pulse 86 Pulse Source Pulse Oximeter Pulse Oximetry (%) 99 Oxygen Delivery Method Room Air Intake Visit Reasons: Annual PE Processing Analyst Required: No Accompanied by: Self / Same As Patient Allergies No Known Allergies Allergy (Unknown, Verified 11/10/25 16:53) UNKNOWN Medication List - Last Reconciled 11/10/25 by Vinny Miller MD atorvastatin 10 mg PO DAILY cholecalciferol (vitamin D3) (Vitamin D3) 25 mcg PO DAILY lisinopril 30 mg PO DAILY 90 days Tobacco use date assessed: 11/10/25 Dental Screening Dental Screen Date: 11/10/25 Did you have a dental visit in the last 12 months?: No Did you have a dental problem in the last 6 months where you did not have access to dental care?: No Was dental information given to patient?: Patient has dentist HPI Annual PE HPI Details Patient comes in today for his annual physical examination States that he feels okay He has noticed that his blood pressure is running much higher than usual at present - states that he had a long and stressful day at work today but he did take his blood pressure medication on time as usual this morning He denies any headaches or dizziness Denies any chest pains, no SOB No nausea/vomiting, no abdominal pain No change in bowel habits noted He denies any acute urinary symptoms Adds that he's had a few hyperpigmented lesions on both of his feet for a while now and there is also a larger, raised lesion on the dorsum of his left foot that he would like to have checked out to be sure he does not have to worry about any potential skin cancer lesions States that these lesions do not itch or hurt He was not able to get his follow up labs done prior to his appointment today - states that he can try to go and get them done tomorrow morning [facility] Medical History Overweight (BMI 25.0-29.9) Essential hypertension Hyperlipidemia Pure hypercholesterolemia Nuno's palsy (~03/2024) Erectile dysfunction Perforated Meckel's diverticulum Vitamin D deficiency Surgical History Hx of left knee surgery (~1997) Status post appendectomy (~07/31/07) Family History Father Hypertension Mother Diverticulitis Brother Diverticulitis Social History Housing: House Alcohol intake: current Alcohol intake frequency: holidays/special occasions only Alcohol type: beer and hard liquor Patient Tobacco Use Status: Never used Tobacco e-Cigarette/Vaping Use: Never Used Second Hand Smoke Exposure: Yes service: No Current occupational status: employed 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 1. Little interest or pleasure in doing things: not at all 2. Feeling down, depressed, or hopeless: not at all 3. Trouble falling or staying asleep, or sleeping too much: not at all 4. Feeling tired or having little energy: not at all 5. Poor appetite or overeating: not at all 6. Feeling bad about yourself - or that you are a failure or have let yourself or your family down: not at all 7. Trouble concentrating on things, such as reading the newspaper or watching television: not at all 8. Moving or speaking so slowly that other people could have noticed. Or the opposite - being so fidgety or restless that you have been moving around a lot more than usual: not at all 9. Thoughts that you would be better off or of hurting yourself in some way: not at all Total score: 0 Depression Screening Interpretation: Negative Depression Screening Done: Yes 80836 - PHQ-9 Billing: Yes Source: Developed by Drs. Kimani Solorzano, Molly Mckinney, Albaro Jensen and colleagues, with an educational wilbur from [employer]. Thrive Questionnaire Date Thrive assessed: 11/10/25 I am a: Patient What is your living situation today?: I choose not to answer this question Within the past 12 months, did the food you bought not last and you didn't have the money to get more?: I choose not to answer this question Within the past 12 months, did you worry whether your food would run out before you got money to buy more?: I choose not to answer this question Do you have trouble paying for medicines?: No Do you have trouble getting transportation to medical appointments?: No Do you have trouble paying your heating and electricity bill?: No Do you have trouble taking care of your child, family member or friend?: No Do you have trouble with day-to-day activities such as bathing, preparing meals, shopping, managing finances, etc.?: No Are you currently unemployed and looking for a job?: No Are you interested in more education?: No Please select the resources that you would like help with: None Currently or been in a relationship where the following occur: I choose not to answer THRIVE Score: 0 AUDIT C Alcohol Use Questionnaire (AUDIT-C) 1. How often do you have a drink containing alcohol?: Never 3. How often do you have six or more drinks on one occasion?: Never Total Score: 0 Score Reviewed/Action Taken: Yes MALGORZATA-7 AMB Questionnaire MALGORZATA-7 Date MALGORZATA - 7 assessed: 11/10/25 Feeling nervous, anxious, or on edge: 0 = Not at all Not being able to stop or control worryin = Not at all Worrying too much about different things: 0 = Not at all Trouble relaxin = Not at all Being so restless that it is hard to sit still: 0 = Not at all Becoming easily annoyed or irritable: 0 = Not at all Feeling afraid as if something awful might happen: 0 = Not at all Total MALGORZATA-7 score (0-4 normal; 5-9 mild; 10-14 moderate; 15-21 severe): 0 Source: Developed by Drs. Kimani Solorzano, Molly Mckinney, Albaro Jensen and colleagues, with an educational wilbur from [employer]. Review of Systems Const Denies chills, Denies fatigue, Denies fever(s), Denies headache(s), Denies malaise and Denies weakness Eyes Denies blurry vision, Denies change in vision, Denies irritation and Denies itchy eyes ENT Denies dysphagia, Denies dizziness, Denies otalgia, Denies headache(s), Denies nasal congestion, Denies neck pain, Denies odynophagia and Denies sore throat Card Denies rapid heart rate, Denies irregular heart rhythm, Denies palpitations and Denies dyspnea Resp Denies chest congestion, Denies cough, Denies dyspnea and Denies wheezing GI Denies abdominal pain, Denies bloating, Denies constipation, Denies dysphagia, Denies heartburn, Denies diarrhea, Denies nausea, Denies odynophagia and Denies vomiting Denies hematuria, Denies difficulty urinating, Denies dysuria, Denies urinary frequency and Denies urinary urgency Musc Denies back pain, Denies arthralgias, Denies joint swelling, Denies muscle weakness and Denies neck pain Skin/Breast Details: (+) few scattered hyperpigmented skin lesions on both feet Denies change in pigmentation, Denies rash and Denies unusual bruising Neuro Denies dizziness, Denies headache(s), Denies paresthesias and Denies weakness Endo Denies fatigue and Denies palpitations Aller/Immun Denies itchy eyes and Denies wheezing Physical exam (Primary Care) Vital Signs: Last Vital Signs Pulse 86 11/10/25 16:42 BP 160/98 H 11/10/25 16:57 Pulse Ox 99 11/10/25 16:42 Oxygen Delivery Method Room Air 11/10/25 16:42 BMI result Body Mass Index 27.6 Tobacco/Smoking Status: Tobacco use Status Tobacco use date assessed 11/10/25 11/10/25 16:50 Patient Tobacco Use Status Never used Tobacco 11/10/25 16:50 e-Cigarette/Vaping Use Never Used 11/10/25 16:50 PHQ-9: PHQ-9 Score PHQ-9: Total score 0 11/10/25 16:58 Depression Screening Interpretation: Negative Thrive Assessment: Date of Thrive Assessment Date Thrive assessed 11/10/25 11/10/25 16:50 Currently or been in a relationship where the following occur: I choose not to answer Const General: no acute distress, alert and awake Orientation/consciousness: patient oriented x3 HENMT Head: Yes normocephalic and Yes atraumatic Ears: external ears normal, TM's normal bilaterally and EAC's normal General nose exam: No nasal discharge present Face and sinus: Yes normal facial exam and Yes sinuses nontender Teeth and gingiva: dentition normal Throat: Yes posterior oropharynx normal and Yes tonsils normal (no TP congestion) Eyes Eyelids: Yes eyelids normal Conjunctivae: conjunctivae normal Pupils: Equal, round and reactive pupils present EOM: EOMs intact bilaterally Neck Neck: Yes no lymphadenopathy and Yes supple Thyroid: Thyroid normal Resp Auscultation: clear to auscultation bilaterally, no rales and no wheezes Cardio Rate: regular rate Rhythm: regular rhythm Heart sounds: no murmurs GI Palpation (GI): Soft to palpation, nontender and No hepatosplenomegaly present Auscultation: normal bowel sounds General: Yes no CVA tenderness Back/Spine/Pelvis Back: no CVA tenderness Thoracic/Lumbar Spine: thoracic and lumbar spine normal to inspection Skin Lesions: no lesions Rashes: no rashes Neuro General: patient oriented x3, moves all extremities, no focal motor deficits and CN's II-XI intact bilaterally Cranial nerves: Yes Equal, round and reactive pupils present Cognition (Neuro): normal cognition Gait exam (Neuro): Normal gait present Extrem Other: (+) few scattered hyperpigmented skin lesions on both feet, mostly on the dorsum; (+) larger, raised hyperpigmented lesion on the dorsum of the left foot just proximal to the toes General: Yes no clubbing, cyanosis or edema Coding Level of Care Code Est Pt Prev Care 40-64y(30745) Diagnoses Annual physical exam Z00.00 Essential hypertension I10 Pure hypercholesterolemia E78.00 Vitamin D deficiency E55.9 Hyperpigmented skin lesion L81.9 Overweight (BMI 25.0-29.9) E66.3 Colon cancer screening Z12.11 Additional Codes PHQ-9 - 05571 - PHQ-9 Billing: Yes ([id number]) Assessment & Plan Assessment & Plan (1) Annual physical exam: Code(s): Z00.00 - Encounter for general adult medical examination without abnormal findings Category: Medical Plan: Check labs AJ to complete his annual exam today - will just have patient use his previous orders (updated) for his lab draw He is also now due to start colon cancer screening and he will be referred to GI for this (2) Essential hypertension: Code(s): I10 - Essential (primary) hypertension Category: Medical Plan: Reinforced low sodium diet - goal is systolic BP of 120 mm or less Continue Lisinopril 30 mg QD His blood pressure is quite elevated today, even after it was rechecked a few minutes later - will have him be followed up with our nurse navigators in a couple of weeks to help recheck his BP Patient is reminded to continue monitoring his blood pressure regularly (3) Pure hypercholesterolemia: Code(s): E78.00 - Pure hypercholesterolemia, unspecified Category: Medical Plan: He was not able to get his follow up labs done prior to his appointment today - states that he will try to get them done tomorrow morning (previous lab orders updated) Reinforced low cholesterol diet Continue Atorvastatin 10 mg QD Will have him recheck his labs and fasting lipids in 4 months for follow up (4) Vitamin D deficiency: Code(s): E55.9 - Vitamin D deficiency, unspecified Category: Medical Plan: Continue Vitamin D3 1000 units QD (5) Hyperpigmented skin lesion: Code(s): L81.9 - Disorder of pigmentation, unspecified Category: Medical Plan: On both feet Will refer him to dermatology for further evaluation and management (6) Overweight (BMI 25.0-29.9): Code(s): E66.3 - Overweight Category: Medical Plan: Reinforced diet/exercise as tolerated/lose weight (7) Colon cancer screening: Code(s): Z12.11 - Encounter for screening for malignant neoplasm of colon Category: Medical Plan: Per request, will refer him to Dr. Chris to start colon cancer screening Plan Follow up in 4 months Orders: Orders Complete Blood Count Auto Diff 4 Months D64.9 - Anemia, unspecified Comprehensive [place]. Panel Fast 4 Months E78.00 - Pure hypercholesterolemia, unspecified Lipid Panel 4 Months E78.00 - Pure hypercholesterolemia, unspecified Referrals Gastroenterology Referral Z12.11 - Encounter for screening for malignant neoplasm of colon Dermatology Referral L81.9 - Disorder of pigmentation, unspecified
[2025-11-10 16:57] VITALS: BP 160/98
== END 2025-11-10 17:08 | disposition home or self-care (01) ==
LOC: HO.HMCH 16:40
PROVIDERS: PCP Internal Medicine; Visit Provider Internal Medicine
DX: Z00.00 Encounter for general adult medical examination without abnormal findings (principal); I10 Essential (primary) hypertension; E78.00 Pure hypercholesterolemia, unspecified; E55.9 Vitamin D deficiency, unspecified; L81.9 Disorder of pigmentation, unspecified; E66.3 Overweight; Z12.11 Encounter for screening for malignant neoplasm of colon

== ENCOUNTER → 2025-11-10 16:39 | Outpatient (BNVA) | payer OTHER, SELFPAY | PROVIDERS: PCP Internal Medicine; Visit Provider Internal Medicine | DX: Z13.31 Encounter for screening for depression (principal); Z13.39 Encounter for screening examination for other mental health and behavioral disorders | CPT/HCPCS: 96127 ==

== ENCOUNTER 2025-11-11 10:06 | Outpatient (REF) | payer OTHER, SELFPAY ==
[2025-11-11 10:20] LABS: MANUAL DIFF FLAG NO
[2025-11-11 10:36] LABS: Hematocrit 41.2 % (42.0-52.0); Hemoglobin 14.1 g/dl (14.0-18.0); Imm Gran Abs Auto 0.02 X10*3/uL (0.00-0.03); Imm Gran Pct Auto 0.3 % (0.0-0.4); Lymphocytes Absolute Auto 2.9 X10*3/uL (1.2-4.9); Mean Corpuscular HGB Conc 34.2 g/dl (31.0-36.0); Mean Corpuscular Hemoglobin 28.0 pg (27.0-33.0); Mean Corpuscular Volume 81.9 fL (80.0-98.0); NRBC Abs Auto 0.000 X10*3/uL (0.0-0.012); NRBC Pct Auto 0.0 /100WBC (0.0-0.2); Platelet Count 319 X10*3/uL (160-400); Red Blood Count 5.03 X10*6/uL (4.60-5.80); White Blood Count 7.9 X10*3/uL (4.8-10.8)
[2025-11-11 10:58] LABS: Appearance Urine Clear; Glucose Urine UA Negative (Negative); PH 6.0 (5.0-9.0); Specific Gravity - Urine 1.020 (1.005-1.025)
[2025-11-11 11:23] LABS: Alanine Aminotransferase 36 U/L (0-40); Albumin Level 4.3 g/dL (3.5-5.0); Alkaline Phosphatase 92 U/L (39-117); Anion Gap 9 (12-20); Aspartate Amino Transferase 37 U/L (5-37); Blood Urea Nitrogen 13 mg/dL (9-16); Calcium 9.0 mg/dL (8.4-10.2); Carbon Dioxide 27 mmol/L (22-29); Chloride 107 mmol/L (96-108); Cholesterol 213 mg/dL (<200); Estimated Glomerular Filt Rate > 60; HDL Cholesterol 39 mg/dL (>40); Potassium 3.3 mmol/L (3.3-5.1); Sodium 140 mmol/L (135-145); Total Protein 6.8 g/dL (6.5-8.0); Triglycerides 299 mg/dL (<150)
== END 2025-11-11 10:07 | disposition home or self-care (01) ==
LOC: HO.LAB 10:06
PROVIDERS: PCP Internal Medicine; Visit Provider Internal Medicine
DX: Z00.00 Encounter for general adult medical examination without abnormal findings (principal); E78.00 Pure hypercholesterolemia, unspecified; E55.9 Vitamin D deficiency, unspecified; E11.9 Type 2 diabetes mellitus without complications; D64.9 Anemia, unspecified; R30.0 Dysuria; Z12.5 Encounter for screening for malignant neoplasm of prostate
CPT/HCPCS: 36415; 80053; 80061; 81003; 82306; 83036; 84153; 84443; 85025